=== PATIENT | female | born 1935 | race African-American/Black ===

== ENCOUNTER 2020-02-26 21:48 | Inpatient (IN) | payer OTHER ==
[2020-02-26 22:51] LABS: BASO % 0.1 % (0-2.0); EOS % 0.4 % (0-4.5); LYMPH % 14.3 % (8-40); MCHC 29.2 g/dl (32.0-36.0); MEAN PLT VOLUME 8.1 fl (7.5-11.1); MONO % 6.3 % (3.8-10.2); NEUT % 78.9 % (42.8-82.8); PLATELET COUNT 404 K/MM3 (134-434); RBC 3.03 M/mm3 (3.60-5.2); RDW 18.9 % (11.6-15.6); WHITE BLOOD COUNT 7.4 K/mm3 (4.0-10.0)
[2020-02-26 22:53] LABS: MCH 17.8 pg (25.7-33.7)
[2020-02-26 22:55] LABS: HEMATOCRIT 18.5 % (32.4-45.2); HEMOGLOBIN 5.4 GM/dL (10.7-15.3)
[2020-02-26 23:08] LABS: INR 1.14 (0.83-1.09); PROTHROMBIN TIME (PATIENT) 13.5 SEC (9.7-13.0)
[2020-02-26 23:11] LABS: ACTIVATED PTT 27.5 SECONDS (25.2-36.5)
--- NOTE | 2020-02-26 23:22 | PDOC ---
History of Present Illness - General Chief Complaint: Syncope/Near Syncope Stated Complaint: SYNCOPE Time Seen by Provider: 02/26/20 21:53 History Source: Patient Exam Limitations: No Limitations - History of Present Illness Initial Comments: 02/26/20 23:20 Lucy Abdullahi is an 85F with PMH CVA May 2019, AFIB on Eliquis, HTN presenting with a syncopal episode. Patient here with daughter at bedside. Today is a patient's birthday, family brought her to a restaurant for dinner, after patient was standing outside in the heat waiting for [employer] to bring car. Daughter reports patient suddenly collapsed, caught by family and sat in chair, but was unresponsive to stimuli and immobile for a few minutes, thought she was until some cool towels placed on patient and she awoke, able to stand and talk again after but EMS called. No tongue-biting, loss of continence, or tonic-clonic movements. Patient ate fish and chips with soda, no alcohol. No sick contacts with family. No prior episodes like this. Has not left house in months due to covid-19, special occasion today. Normally able to stand and walk but does not so for a long time, gets tired easily. Prior CVA, daughter reports residual confusion/aphasia as well as mild R-sided weakness but otherwise functional, has been asymptomatic until today. Hard of hearing. Known history of AFIB on BB and Eliquis, has been taking medications regularly. Appetite good, no weight loss, no rectal bleeding. Patient feels fine right now. Has no recollection of the event, denies prodromal sx. Denies F/C, N/V/C/D, chest pain, SOB, abd pain, urinary sx, dizziness. NKDA Meds include BB and Eliquis No PSH Denies alcohol/drugs/tobacco Past History - Medical History Allergies/Adverse Reactions: Allergies Allergy/AdvReac Type Severity Reaction Status Date / Time No Known Allergies Allergy Verified 02/27/20 06:17 Home Medications: Ambulatory Orders Amiodarone HCl 100 mg PO DAILY 02/27/20 Amlodipine Besylate [Norvasc -] 5 mg PO DAILY 02/27/20 Apixaban [Eliquis -] 2.5 mg PO BID 02/27/20 Atorvastatin Ca [Lipitor] 40 mg PO HS 02/27/20 Hydrochlorothiazide [Hctz -] 25 mg PO DAILY 02/27/20 - Psycho-Social/Smoking History Smoking History: Never smoked Have you smoked in the past 12 months: No Information on smoking cessation initiated: No - Substance Abuse Hx (Audit-C & DAST Scrn) How often the patient has a drink containing alcohol: Never Score: In Men: 4 or > Positive; In Women: 3 or > Positive: 0 Screen Result (Pos requires Nsg. Audit-10AR): Negative In the last yr the pt used illegal drug/Rx for NonMed reason: No Score: Yes response is considered Positive: 0 Screen Result (Positive result requires Nsg. DAST-10): Negative Review of Systems - Review of Systems Able to Perform ROS?: Yes Constitutional: Yes: Weakness. No: Fever, Loss of Appetite HEENTM: No: Symptoms Reported Respiratory: No: Symptoms reported Cardiac (ROS): Yes: Syncope ABD/GI: No: Constipated, Diarrhea, Nausea, Poor Appetite, Poor Fluid Intake, Rectal Bleeding, Vomiting : No: Symptoms Reported Musculoskeletal: No: Symptoms Reported Integumentary: No: Symptoms Reported Neurological: Yes: Pre-Existing Deficit (R-sided weakness arm and leg) Endocrine: No: Symptoms Reported Hematologic/Lymphatic: No: Symptoms Reported All Other Systems: Reviewed and Negative *Physical Exam - Vital Signs Last Vital Signs Temp Pulse Resp BP Pulse Ox 98.1 F 61 20 146/58 L 100 02/26/20 21:49 02/26/20 21:49 02/26/20 21:49 02/26/20 21:49 02/26/20 21:49 - Physical Exam General Appearance: Yes: Nourished, Appropriately Dressed, Thin, Other (hard of hearing, mildly confused, able to communicate well with slower speech). No: Apparent Distress HEENT: positive: EOMI, SANTOS, Normal ENT Inspection, Normal Voice, Symmetrical, Pharynx Normal, Hearing Grossly Normal. negative: Scleral Icterus (R), Scleral Icterus (L), Pharyngeal Erythema, Tonsillar Exudate, Tonsillar Erythema Neck: positive: Trachea midline, Normal Thyroid, Supple. negative: Tender, Rigid, Decreased range of motion, Lymphadenopathy (R), Lymphadenopathy (L), Tender lateral, Tender midline Respiratory/Chest: positive: Lungs Clear, Normal Breath Sounds. negative: Chest Tender, Respiratory Distress, Accessory Muscle Use, Labored Respiration, Financial Auditor ckles, Rales, Rhonchi, Stridor, Wheezing Cardiovascular: positive: Regular Rhythm, Regular Rate. negative: Murmur Gastrointestinal/Abdominal: positive: Normal Bowel Sounds, Flat, Soft. negative: Tender, Organomegaly, Pulsatile Mass, Guarding, Rebound, Tenderness Musculoskeletal: positive: Normal Inspection. negative: CVA Tenderness, CVA Tenderness (R), CVA Tenderness (L), Vertebral Tenderness Extremity: positive: Normal Capillary Refill, Normal Inspection, Normal Range of Motion, Pelvis Stable. negative: Tender, Pedal Edema, Swelling, Calf Tenderness Integumentary: positive: Normal Color, Dry, Warm Neurologic: positive: tobacco shaker II-XII NML intact, Alert, Normal Mood/Affect, Normal Response, Responsive, Finger to Nose (normal), Other (follows commands well, hard of hearing). 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, otherwise normal strength to L side, moving spontanesouly), Facial Droop, Numbness, Sensory Deficit ED Treatment Course - LABORATORY CBC & Chemistry Diagram: 02/27/20 20:45 02/27/20 11:20 - ADDITIONAL ORDERS Additional order review: Laboratory Results 02/26/20 22:35 PT with INR 13.50 H INR 1.14 H PTT (Actin FS) 27.5 02/26/20 22:35 RBC 3.03 L MCV 61.0 L MCHC 29.2 L RDW 18.9 H MPV 8.1 Neutrophils % 78.9 Lymphocytes % 14.3 Monocytes % 6.3 Eosinophils % 0.4 Basophils % 0.1 Medical Decision Making - Medical Decision Making 02/27/20 02:04 Patient has history of AFIB and CVA presenting with syncope. Consider ACS vs. arrhythmia vs. dehydration vs. anemia. Unlikely neuro etiology, per daughter at baseline mental status and motor deficit, no new findings from prior as evidence of new CVA or ICH, history inconsistent with seizure, no head injury with syncope but on Eliquis. VSS. Evaluating broadly with CBC/CMP/CP/ECG/CXR/Coags as well as CT head for eval ICH. Orthostatics attempted but patient is too weak to safely stand. ECG NSR with HR 60, QTc 544, no RADHA/D or TWI. CXR unremarkable Labs notable for: - Hgb 5.3 - MCV 60 consistent with microcytic anemia - CMP WNL CT head: no acute pathology Patient has critically low Hgb, ordering 2U pRBCs. Family consent obtained. Performed rectal exam and FOBT, no evidence of bleeding or hemorrhoids. FOBT negative. Iron studies added, likely iron deficiency, no signs of bleeding on preliminary exam. Patient requires admission to telemetry for syncope and anemia requiring transfusion. Attending discussed case with admitting team, good for admit to tele under Dr. Burgess. Discharge - Discharge Information Problems reviewed: Yes Clinical Impression/Diagnosis: Syncope and collapse Anemia Qualifiers: Anemia type: unspecified type Qualified Code(s): D64.9 - Anemia, unspecified Condition: Guarded - Admission Yes - Follow up/Referral - Patient Discharge Instructions - Post Discharge Activity
[2020-02-26 23:42] LABS: ALK PHOS 98 U/L (45-117); ANION GAP 5 MMOL/L (8-16); ANISOCYTOSIS 1+; BILIRUBIN,TOTAL 0.3 mg/dL (0.2-1); BLOOD UREA NITROGEN 13.1 mg/dL (7-18); CALCIUM 9.2 mg/dL (8.5-10.1); CHLORIDE 102 mmol/L (98-107); CO2 31 mmol/L (21-32); GLUCOSE,RANDOM 160 mg/dL (74-106); MAGNESIUM 2.3 mg/dL (1.8-2.4); SGOT/AST 25 U/L (15-37); SGPT/ALT 22 U/L (13-61); SODIUM 138 mmol/L (136-145); TOT PROT 7.4 g/dl (6.4-8.2)
[2020-02-26 23:43] LABS: OVALOCYTE 1+; PLATELET ESTIMATE ADEQUATE
--- NOTE | 2020-02-27 00:02 | PDOC ---
Documentation entered by Anne Marie Hutchison SCRIBE, acting as scribe for Codie Truong DO. Codie Truong DO: This documentation has been prepared by the Foster wilkerson Xhesika, SCRIBE, under my direction and personally reviewed by me in its entirety. I confirm that the documentation accurately reflects all work, treatment, procedures, and medical decision making performed by me. Attending Attestation - Resident Resident Name: Juan Sandra - ED Attending Attestation I have performed the following: I have examined & evaluated the patient, The case was reviewed & discussed with the resident, I agree w/resident's findings & plan, Exceptions are as noted - HPI HPI: 02/26/20 21:55 The patient is a 85 year old male with a significant PMH of CVA with residual deficits, Afib on eliquis who presents to the emergency department s/p syncope. Pt was at a restaurant because its her birthday, ate dinner, was standing outside waiting for compression molding machine setter to bring the car back when she fell. Pt was caught by the daughter and was sat on a chair. Family denies patient hitting her head. Per family, patient was unresponsive for 3minutes. Pt does not recall the incident. Pt denies drinking alcohol tonight, only had fish, iranian-fries, soda and water. The patient denies chest pain, shortness of breath, headache and dizziness. Denies fever, chills, cough, nausea, vomiting, diarrhea and constipation. Allergies: NKDA PCP: Eran Seaman - Physicial Exam PE: 02/26/20 22:53 GENERAL: Awake, alert, and fully oriented. slow to answer questions HEAD: No signs of trauma EYES: PERRLA, EOMI, sclera anicteric, conjunctiva clear ENT: Auricles normal inspection, hearing grossly normal, nares patent, oropharynx clear without exudates. Moist mucosa NECK: Normal ROM, supple, no lymphadenopathy, JVD, or masses LUNGS: Breath sounds equal, clear to auscultation bilaterally. No wheezes, and no crackles HEART: Regular rate and rhythm, normal S1 and S2, no murmurs, rubs or gallops ABDOMEN: Soft, nontender, normoactive bowel sounds. No guarding, no rebound. No masses EXTREMITIES: Normal range of motion, no edema. No clubbing or cyanosis. No cords, erythema, or tenderness SKIN: Warm, Dry, normal turgor, no rashes lesions noted. 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 -denies abd pain -will send labs, ekg, cxr, head ct -[facility] -will monitor and reassess 02/27/20 00:01 hgb 5 discussed with the patient and her son, agrees to blood transfusion 2 units ordered stool for heme sent will need admission 02/27/20 00:04 cxr clear 02/27/20 01:[address] neg 02/27/20 01:08 microblog sent for admission for symptomatic anemia, syncope 02/27/20 01:34 case discussed with osvaldo, who accepts pt to service Heart Score/ECG Review - ECG Intrepretation Comment:: 02/26/20 23:55 sinus at 60, nl axis, nl interval, t wave inversions v3-4, q waves anteriorly which are age indeterminate, abnl ekg Discharge - Discharge Information Problems reviewed: Yes Clinical Impression/Diagnosis: Syncope and collapse Anemia Qualifiers: Anemia type: unspecified type Qualified Code(s): D64.9 - Anemia, unspecified Condition: Guarded - Admission Yes - Follow up/Referral Referrals: Eran Seaman MD [Primary Care Provider] - - Patient Discharge Instructions - Post Discharge Activity
--- NOTE | 2020-02-27 01:42 | PN ---
Teaching Attending Note Name of Resident: Dahiana De La Torre ATTENDING PHYSICIAN STATEMENT I saw and evaluated the patient. I reviewed the resident's note and discussed the case with the resident. I agree with the resident's findings and plan as documented. SUBJECTIVE: Patient is a 85 year old woman with a PMH of CVA with residual deficits (2019) and Afib (on eliquis) who presents to the ER after a syncopal episode. Patient was at a restaurant because its her birthday, ate dinner, was standing outside waiting for [employer] to bring the car back when she fell. She was caught by the daughter and was sat on a chair. Family denies patient hitting her head. Per family, patient was unresponsive for about 3 minutes. Patient does not recall the incident and denies drinking alcohol tonight - only had fish, rwandan-fries, soda and water. Patient denies chest pain, shortness of breath, abdominal pain, headache, palpitations, dizziness, fever, chills, nausea, vomiting, diarrhea, constipation, dysuria, frequency, urgency, melena, hematochezia or hematuria. Denies alcohol, tobacco or illicit drug use. No sick contacts or recent travels. Family history is unremarkable. OBJECTIVE: Alert and not orthostatic Vital Signs Period Temp Pulse Resp BP Sys/Vega Pulse Ox Last 24 Hr 98.1 F-99.1 F 59-61 18-20 130-146/55-58 96-100 HEENT: No Jaundice, eye redness or discharge; +conjuctival pallor, PERRLA, EOMI. Normocephalic, atraumatic. External ears are normal and hearing is grossly intact. No nasal discharge. Neck: Supple, nontender. No palpable adenopathy or thyromegaly. No JVD Chest: Good effort. Clear to auscultation and percussion. Heart: Regular. No S3, rub or murmur Abdomen: Not distended, soft, nontender and no HSM. No rebound or guarding. Normal bowel sounds. Ext: Peripheral pulses intact. No leg edema. Skin: Warm and dry. No petechiae, rash or ecchymosis. Neuro: Alert. Oriented to person and place; CN 2-12 grossly intact. Sensation grossly intact in all four extremities and DTR are symmetric. Psych: Appropriate mood and affect. Good insight. Abnormal Lab Results 07/29/20 07/29/20 07/29/20 22:35 22:35 22:35 RBC 3.03 L Hgb 5.4 L* Hct 18.5 L MCV 61.0 L MCH 17.8 L MCHC 29.2 L RDW 18.9 H PT with INR 13.50 H INR 1.14 H Anion Gap 5 L Random Glucose 160 H Albumin 3.0 L Crossmatch 02/26/20 23:38 RBC Hgb Hct MCV MCH MCHC RDW PT with INR INR Anion Gap Random Glucose Albumin Crossmatch See Detail Current Medications Generic Name Dose Route Start Last Admin Trade Name Freq PRN Reason Stop Dose Admin Ferrous Sulfate 325 mg 02/27/20 10:00 Feosol - PO BID VICTORINO ASSESSMENT AND PLAN: 1. Syncope/Severe microcytic anemia - Syncope likely due to anemia. No acute abnormality on head CT. CXR shows cardiomegaly. Will do basic anemia work up including serial stool guaiacs, reticulocyte count and iron studies. Will admit to telemetry, hold Eliquis, do neurochecks, implement fall/seizure/aspiration precautions, get ECHO, urinalysis, carotid doppler, CT abdomen/pelvis and repeat head CT in 24 hours. Patient being transfused PRBC and would subsequently need IV iron. During the day would strive to get her records from her PCP. Consult GI. Viral testing for COVID-19 ordered and patient placed on airborne, droplet and contact isolation. EKG shows NSR at 60/minute and QTc 544, T wave inversion/flattening in I, aVL, V2-V6 with no significant ST changes. Initial troponin is negative. No old EKG available for comparison. Will repeat EKG and troponin to rule out ACS. Will avoid drugs that may prolong QTc. Will continue comprehensive care for all of patients comorbid conditions. 2. Hypoalbuminemia - Possibly due to combined effects of malnutrition and inflammation associated with comorbid conditions. Will ensure adequate dietary protein intake and also consult state trooper. Urinalysis pending. 3. DVT prophylaxis - SCD 4. Advance directives - Full code
[2020-02-27 02:18] LABS: IRON SERUM 9 ug/dL (50-175); TOTAL IRON BINDING CAPACITY 466 ug/dL (250-450)
--- NOTE | 2020-02-27 05:55 | HP ---
CHIEF COMPLAINT: Syncope HISTORY OF PRESENT ILLNESS: Patient is a 85 year old woman with a PMH of CVA with residual aphasia and Afib (on eliquis) now presenting to the ER after a syncopal episode. Today is her birthday and she went out for dinner which her family. While waiting for her car, she fell backward but was held by the daughter and placed on a chair. She was told she had a brief LOC and water was poured on her face but could not tell the duration of LOC. She denies hitting her head. Per family, patient was unresponsive for about 3 minutes. Patient does not recall the incident and denies drinking alcohol tonight - only had fish, urdu-fries, soda and water. Patient denies chest pain, shortness of breath, abdominal pain, headache, palpitations, dizziness, fever, chills, nausea, vomiting, diarrhea, constipation, dysuria, frequency, urgency, melena, hematochezia or hematuria. Denies alcohol, tobacco or illicit drug use. No sick contacts or recent travels. Family history is unremarkable and was limited by patient's slowed speech. ER course was notable for: (1)ua done (2)ct head negative for acute pathology just old infarct of mca distribution (3)cbc- 5hgb Social History: Smoking:denies Alcohol:denies Drugs: denies Family Hx: Limited, patient was limited by her speech OBGY: Post menopausal PSHx: None REVIEW OF SYSTEMS negative except as in hpi PHYSICAL EXAMINATION Vital Signs - 24 hr 02/26/20 02/27/20 21:49 01:04 Temperature 98.1 F 99.1 F Pulse Rate 61 Pulse Rate [ 59 L Left Radial] Respiratory 20 18 Rate Blood Pressure 146/58 L Blood Pressure 130/55 L [Left Arm] O2 Sat by Pulse 100 96 Oximetry (%) GENERAL: Awake, alert, and oriented X2 place and month not year, in no acute distress. HEAD: Normal with no signs of trauma. NECK: Normal range of motion, supple without lymphadenopathy, JVD, or masses. LUNGS: Breath sounds equal, clear to auscultation bilaterally. No wheezes, and no crackles. No accessory muscle use. HEART: Regular rate and rhythm, normal S1 and S2, s45 present ABDOMEN: Soft, nontender, not distended. MUSCULOSKELETAL: Normal range of motion at all joints. No bony deformities or tenderness. No CVA tenderness. LOWER EXTREMITIES: 2+ pulses, warm, well-perfused. No calf tenderness. No peripheral edema. NEUROLOGICAL: Cranial nerves II-XII intact. 4/5 lower extremities slowed speech. PSYCHIATRIC: Cooperative. Good eye contact. Appropriate mood and affect. Laboratory Results - last 24 hr 02/26/20 02/26/20 02/26/20 22:35 22:35 22:35 WBC 7.4 RBC 3.03 L Hgb 5.4 L* Hct 18.5 L MCV 61.0 L MCH 17.8 L MCHC 29.2 L RDW 18.9 H Plt Count 404 MPV 8.1 Absolute Neuts (auto) 5.8 Neutrophils % 78.9 Lymphocytes % 14.3 Monocytes % 6.3 Eosinophils % 0.4 Basophils % 0.1 Nucleated RBC % 0 Hypochromia 3+ Platelet Estimate Adequate Platelet Comment Giant platelets Polychromasia 1+ Poikilocytosis 1+ Anisocytosis 1+ Microcytosis 2+ Ovalocytes 1+ Ruslan Cells 1+ Fragmented RBCs Few PT with INR 13.50 H INR 1.14 H PTT (Actin FS) 27.5 Sodium 138 Potassium 4.0 Chloride 102 Carbon Dioxide 31 Anion Gap 5 L BUN 13.1 Creatinine 1.0 Est GFR (CKD-EPI)AfAm 59.49 Est GFR (CKD-EPI)NonAf 51.33 Random Glucose 160 H Calcium 9.2 Magnesium 2.3 Iron 9 L TIBC 466 H Iron Saturation 1 L Unsaturated IBC 457 H Total Bilirubin 0.3 AST 25 ALT 22 Alkaline Phosphatase 98 Creatine Kinase 102 Troponin I < 0.02 Total Protein 7.4 Albumin 3.0 L Vitamin B12 604 Serum Folate 9 Stool Occult Blood Blood Type Antibody Screen Crossmatch 02/26/20 02/26/20 02/27/20 23:38 23:38 00:01 WBC RBC Hgb Hct MCV MCH MCHC RDW Plt Count MPV Absolute Neuts (auto) Neutrophils % Lymphocytes % Monocytes % Eosinophils % Basophils % Nucleated RBC % Hypochromia Platelet Estimate Platelet Comment Polychromasia Poikilocytosis Anisocytosis Microcytosis Ovalocytes Brandeis Cells Fragmented RBCs PT with INR INR PTT (Actin FS) Sodium Potassium Chloride Carbon Dioxide Anion Gap BUN Creatinine Est GFR (CKD-EPI)AfAm Est GFR (CKD-EPI)NonAf Random Glucose Calcium Magnesium Iron TIBC Iron Saturation Unsaturated IBC Total Bilirubin AST ALT Alkaline Phosphatase Creatine Kinase Troponin I Total Protein Albumin Vitamin B12 Serum Folate Stool Occult Blood Negative Blood Type A POSITIVE A POSITIVE Antibody Screen Negative Negative Crossmatch See Detail ASSESSMENT/PLAN: Patient is a 85 year old woman with a PMH of CVA with residual aphasia and Afib (on eliquis) now presenting to the ER after a syncopal episode. 1.Syncope likely 2/2 Severe microcytic anemia -Hb 5.4, MCV 18.5, rdw 18.9 - iron deficiency anemia - s/p 2 prbc transfusions - will do basic anemia work up: stool guaiacs, reticulocyte count and iron studies - as per day team if you want to give venofer - rpt cbc in am and assess post prbc transfusion - obtain more hx from daughter in am - echo, carotid - implement fall/seizure/aspiration precautions, urinalysis, - get CT abdomen/pelvis to assess for source of blood loss - Consult GI. Viral testing for COVID-19 ordered and patient placed on airborne, droplet and contact isolation. 2.Hypertensve heart disease. -CXR shows cardiomegaly. -hx of HTN -hx of CVD -S4 Heart sound on auscultation - Will restart suitable outpatient antihypertensive drugs when clinically appropriate. 3. Qtc prolongation - unknown cause possibly due to medication side effect and could be cause of syncope, will have day team med rec patient stat - EKG shows NSR at 60/minute and QTc 544, T wave inversion/flattening in I, aVL, V2-V6 with no significant ST changes. Initial troponin is negative. 4. DM For now, we will hold the home diabetes drugs and implement sliding scale insulin regimen. - BGM ACHS - A1C DVT prophylaxis - SCD Continue to monitor all results and treat as clinically required Advance directives - Full code Visit type - Medication Review Med list reviewed for High Risk Meds patients 65 and older: Yes - Emergency Visit Emergency Visit: Yes ED Registration Date: 02/27/20 Care time: The patient presented to the Emergency Department on the above date and was hospitalized for further evaluation of their emergent condition. - New Patient This patient is new to me today: Yes Date on this admission: 02/27/20 - Critical Care Critical Care patient: No ATTENDING PHYSICIAN STATEMENT I saw and evaluated the patient. I reviewed the resident's note and discussed the case with the resident. I agree with the resident's findings and plan as documented. SUBJECTIVE: OBJECTIVE: ASSESSMENT AND PLAN:
[2020-02-27] MEDS ORDERED: FERROUS SO4 325 MG TABLET (FP) PO SCH (08:00)
[2020-02-27] MEDS ORDERED: FERROUS SO4 325 MG TABLET (FP) ONE (08:33)
[2020-02-27] MEDS ORDERED: amLODIPine BESYLATE 5 MG TABLET (FP) PO SCH (10:00)
[2020-02-27] MEDS ORDERED: HYDROCHLOROTHIAZIDE 25 MG TABLET (FP) PO SCH (10:00)
--- NOTE | 2020-02-27 11:29 | EKG ---
Test Reason : Blood Pressure : / mmHG Vent. Rate : 060 BPM Atrial Rate : 060 BPM P-R Int : 176 ms QRS Dur : 090 ms QT Int : 544 ms P-R-T Axes : 090 -10 126 degrees QTc Int : 544 ms NORMAL SINUS RHYTHM POSSIBLE ANTERIOR INFARCT , AGE UNDETERMINED ABNORMAL ECG NO PREVIOUS ECGS AVAILABLE Confirmed by KARLA MARQUES MD ([id number]) on 02/27/2020 11:28:37 AM Referred By: Confirmed By:KARLA MARQUES MD
[2020-02-27] MEDS ORDERED: HYDROCHLOROTHIAZIDE 25 MG TABLET (FP) ONE (11:34)
[2020-02-27 11:48] LABS: BASO % 0.5 % (0-2.0); EOS % 0.7 % (0-4.5); HEMATOCRIT 21.1 % (32.4-45.2); LYMPH % 19.5 % (8-40); MCHC 30.6 g/dl (32.0-36.0); MEAN CELL VOLUME 64.2 fl (80-96); MEAN PLT VOLUME 8.5 fl (7.5-11.1); MONO % 7.4 % (3.8-10.2); NEUT % 71.9 % (42.8-82.8); PLATELET COUNT 376 K/MM3 (134-434); RBC 3.28 M/mm3 (3.60-5.2); RDW 22.5 % (11.6-15.6); WHITE BLOOD COUNT 6.4 K/mm3 (4.0-10.0)
[2020-02-27 11:49] LABS: MCH 19.7 pg (25.7-33.7)
[2020-02-27 11:51] LABS: HEMOGLOBIN 6.5 GM/dL (10.7-15.3)
[2020-02-27 12:23] LABS: ALBUMIN 2.6 g/dl (3.4-5.0); BILIRUBIN,TOTAL 0.4 mg/dL (0.2-1); BLOOD UREA NITROGEN 12.9 mg/dL (7-18); CREATININE 0.8 mg/dL (0.55-1.3); POTASSIUM 3.9 mmol/L (3.5-5.1); TOT PROT 6.6 g/dl (6.4-8.2)
--- NOTE | 2020-02-27 12:26 | ECHO ---
Name: JOSE ALEXANDER Exam:Adult Echocardiogram Study Date: 02/27/2020 09:28 AM Age: 85 yrs Reason For Study: LV Function Height: 66 in Weight: 150 lb BSA: 1.8 m2 MMode/2D Measurements & Calculations IVSd: 0.99 cm Ao root diam: 3.1 cm LVIDd: 4.9 cm LA dimension: 4.0 cm LVIDs: 3.2 cm ACS: 1.9 cm LVPWd: 0.94 cm LVPWs: 0.90 cm EDV(Teich): 110.3 ml ESV(Teich): 39.5 ml LVOT diam: 2.0 cm LVLd ap4: 6.8 cm EDV(MOD-sp4): 79.0 ml LVLs ap4: 4.9 cm ESV(MOD-sp4): 22.0 ml SV(MOD-sp4): 57.0 ml TAPSE: 1.8 cm RV S Juan Jose: 16.0 cm/sec Doppler Measurements & Calculations MVA(VTI): 1.7 cm2 MV E max juan jose: 62.2 cm/sec MV V2 max: 100.6 cm/sec MV A max juan jose: 88.8 cm/sec MV max P.1 mmHg MV E/A: 0.70 MV V2 mean: 52.7 cm/sec MV dec time: 0.36 sec MV mean P.3 mmHg MV V2 VTI: 35.0 cm Ao V2 max: 199.2 cm/sec AI max juan jose: 347.3 cm/sec Ao max P.0 mmHg AI max P.3 mmHg Ao V2 mean: 137.7 cm/sec Ao mean P.8 mmHg AI dec slope: 111.0 cm/sec2 Ao V2 VTI: 49.8 cm ANGELIA(I,D): 1.2 cm2 AI P1/2t: 916.8 msec ANGELIA(V,D): 1.4 cm2 LV V1 max P.1 mmHg MR max juan jose: 365.5 cm/sec LV V1 mean P.8 mmHg MR max P.8 mmHg LV V1 max: 88.2 cm/sec LV V1 mean: 62.8 cm/sec LV V1 VTI: 19.0 cm SV(LVOT): 58.1 ml TR max juan jose: 247.0 cm/sec TR max P.4 mmHg PA V2 max: 158.8 cm/sec Med Peak E' Juan Jose: 4.9 cm/sec PA max P.1 mmHg Med E/e': 12.6 Lat Peak E' Juan Jose: 8.8 cm/sec Lat E/e': 7.0 Procedure A complete two-dimensional transthoracic echocardiogram was performed (2D, M-mode, Doppler and color flow Doppler). Left Ventricle The left ventricular size, thickness and function are normal. Ejection Fraction = 60-65%. The left ve ntricular wall motion is normal. Right Ventricle The right ventricle is normal in size and function. Atria Normal left and right atrial size and function. Mitral Valve There is no mitral regurgitation noted. Tricuspid Valve There is trace tricuspid regurgitation. Right ventricular systolic pressure is normal. Aortic Valve Mild valvular aortic stenosis. Mild aortic regurgitation. Pulmonic Valve Trace pulmonic valvular regurgitation. Great Vessels The aortic root is normal size. Pericardium/Pleura There is no pericardial effusion. Interpretation Summary The left ventricular size, thickness and function are normal The right ventricle is normal in size and function. There is trace tricuspid regurgitation. Mild aortic regurgitation. Mild valvular aortic stenosis. Trace pulmonic valvular regurgitation. MD Mert Persaud 02/27/2020 12:26 PM
--- NOTE | 2020-02-27 12:43 | PN ---
Physical Exam: SUBJECTIVE: No overnight events. Patient seen and examined. Pt has no complaints OBJECTIVE: Vital Signs Period Temp Pulse Resp BP Sys/Vega Pulse Ox Last 24 Hr 98.1 F-99.1 F 50-111 14-20 112-146/49-66 96-100 GENERAL: The patient is awake, alert, and fully oriented, in no acute distress. aphasic HEENT: NT/NC; No ptosis, MMM LUNGS: Breath sounds equal, clear to auscultation bilaterally, no wheezes, no crackles, no accessory muscle use. HEART: Regular rate and rhythm, S1, S2. Systolic mumur at L lower sternal border and mitral area ABDOMEN: Soft, nontender, nondistended, normoactive bowel sounds, no external masses, no skin tags, firm stool, no rectal blood appreciated, normal rectal tone EXTREMITIES: 2+ pulses, warm, well-perfused, no edema. Clavicle not TTP. b/l Shoulder full ROM. NEUROLOGICAL: Cranial nerves II through XII grossly intact. Normal speech, gait not observed. Sensation intact b/l LE & UE. Strength: RUE 4/5 strength, LUE 5/5, LLE 5/5, RLE 4/5 flexion/extension at hip, 3/5 flexion/extension at knee PSYCH: Normal mood, normal affect. SKIN: Warm, dry, normal turgor, no rashes or lesions noted Laboratory Results - last 24 hr 02/26/20 02/26/20 02/26/20 22:35 22:35 22:35 WBC 7.4 RBC 3.03 L Hgb 5.4 L* Hct 18.5 L MCV 61.0 L MCH 17.8 L MCHC 29.2 L RDW 18.9 H Plt Count 404 MPV 8.1 Absolute Neuts (auto) 5.8 Neutrophils % 78.9 Lymphocytes % 14.3 Monocytes % 6.3 Eosinophils % 0.4 Basophils % 0.1 Nucleated RBC % 0 Hypochromia 3+ Platelet Estimate Adequate Platelet Comment Giant platelets Polychromasia 1+ Poikilocytosis 1+ Anisocytosis 1+ Microcytosis 2+ Ovalocytes 1+ [place] Cells 1+ Fragmented RBCs Few Retic Count PT with INR 13.50 H INR 1.14 H PTT (Actin FS) 27.5 Sodium 138 Potassium 4.0 Chloride 102 Carbon Dioxide 31 Anion Gap 5 L BUN 13.1 Creatinine 1.0 Est GFR (CKD-EPI)AfAm 59.49 Est GFR (CKD-EPI)NonAf 51.33 Random Glucose 160 H Calcium 9.2 Magnesium 2.3 Iron 9 L TIBC 466 H Iron Saturation 1 L Unsaturated IBC 457 H Total Bilirubin 0.3 AST 25 ALT 22 Alkaline Phosphatase 98 Creatine Kinase 102 Troponin I < 0.02 Total Protein 7.4 Albumin 3.0 L Vitamin B12 604 Serum Folate 9 Stool Occult Blood Blood Type Antibody Screen Crossmatch 02/26/20 02/26/20 02/27/20 23:38 23:38 00:01 WBC RBC Hgb Hct MCV MCH MCHC RDW Plt Count MPV Absolute Neuts (auto) Neutrophils % Lymphocytes % Monocytes % Eosinophils % Basophils % Nucleated RBC % Hypochromia Platelet Estimate Platelet Comment Polychromasia Poikilocytosis Anisocytosis Microcytosis Ovalocytes [place] Cells Fragmented RBCs Retic Count PT with INR INR PTT (Actin FS) Sodium Potassium Chloride Carbon Dioxide Anion Gap BUN Creatinine Est GFR (CKD-EPI)AfAm Est GFR (CKD-EPI)NonAf Random Glucose Calcium Magnesium Iron TIBC Iron Saturation Unsaturated IBC Total Bilirubin AST ALT Alkaline Phosphatase Creatine Kinase Troponin I Total Protein Albumin Vitamin B12 Serum Folate Stool Occult Blood Negative Blood Type A POSITIVE A POSITIVE Antibody Screen Negative Negative Crossmatch See Detail See Detail 02/27/20 02/27/20 11:20 11:20 WBC 6.4 RBC 3.28 L Hgb 6.5 L* Hct 21.1 L MCV 64.2 L MCH 19.7 L D MCHC 30.6 L RDW 22.5 H Plt Count 376 MPV 8.5 Absolute Neuts (auto) 4.6 Neutrophils % 71.9 Lymphocytes % 19.5 D Monocytes % 7.4 Eosinophils % 0.7 Basophils % 0.5 D Nucleated RBC % 0 Hypochromia Platelet Estimate Platelet Comment Polychromasia Poikilocytosis Anisocytosis Microcytosis Ovalocytes [place] Cells Fragmented RBCs Retic Count 1.70 H PT with INR INR PTT (Actin FS) Sodium 139 Potassium 3.9 Chloride 104 Carbon Dioxide 30 Anion Gap 6 L BUN 12.9 Creatinine 0.8 Est GFR (CKD-EPI)AfAm 77.92 Est GFR (CKD-EPI)NonAf 67.23 Random Glucose 92 Calcium 9.0 Magnesium Iron TIBC Iron Saturation Unsaturated IBC Total Bilirubin 0.4 AST 21 ALT 19 Alkaline Phosphatase 90 Creatine Kinase Troponin I Total Protein 6.6 Albumin 2.6 L Vitamin B12 Serum Folate Stool Occult Blood Blood Type Antibody Screen Crossmatch Active Medications Generic Name Dose Route Start Last Admin Trade Name Indira PRN Reason Stop Dose Admin Atorvastatin Calcium 40 mg 02/27/20 22:00 Lipitor - PO HS VICTORINO Ferrous Sulfate 325 mg 02/27/20 08:00 02/27/20 08:33 Feosol - PO 325 mg BIDWM VICTORINO Administration Hydrochlorothiazide 25 mg 02/27/20 10:00 02/27/20 11:34 Hctz - PO 25 mg DAILY VICTORINO Administration CTH: encephalomalacia in L frontal lobe, extending level of slyvian fissure up to centrum semiovale. B/l maxillary antra retention cysts vs polyps, largest measuring 12 mm on R CTAP: bibasilar consolidation/atelectasis. Fecal retention with rectal impaction. Thickening of rectal wall ASSESSMENT/PLAN: 85 YO F PMH HTN, CVA with residual aphasia and Afib (on eliquis) presented s/p a syncopal episode, found to have microcytic anemia. #Syncope 2/2 Microcytic anemia -CT head/CTAP showed no pathology. -on admission, Hgb/Hct 5/18.5. s/p 2 units. -EKG: QTC. Takes amiodarone at home. no events overight on telemonitoring -ECHO: LV/RV normal. Trace tricuspid/pulmonic regurg. Mild aortic regurg. Mild aortic stenosis -Carotid duplex: plaques; but without evidence of hemodynamically significant stenosis -Cardio c/s appreciated. manual QTC was found to be WNL. syncope likely 2/2 anemia. -c/w telemonitoring. --check AM orthostatic vitals -GI c/s appreciated. Protonix 40 mg daily #Iron deficiency anemia -on admission, Hgb/Hct 5/18.5. s/p 1 units prbc. Repeat CBC showed Hgb/hct 6.5/21.1 . One more prbc unit ordered. REpeat Hgb/Hct: 7.9/25.4 -stool occult blood negative. No blood on rectal exam. -LOW: MCV, iron, iron saturation/// HIGH: TIBC 466; Unsaturated IBC: 457, RDW// NORMAL: Vit B12 (604), Folate (9) -hold home eliquis. -GI consult appreciated. Possible colonoscopy on Monday due to home Eliquis. Goals of care to be clarified w/ pt's son who is the HCP. Keep Hgb > 8 #R clavicle fracture on X-ray -no pain on palpation of clavicle. b/l shoulder normal ROM on physical exam. -pt endorsed a mechanical fall in September. She tripped over an object and injured her shoulder. She used ice and the pain eventually resolved. #Fecal Impaction -CTAP: Fecal retention with rectal impaction -[id number] mg PO BID -GI C/s appreciated. Miralax 17 gm PO TID, senna tab PO HS started -rectum was manually disimpacted #HTN -hold hydrochlorothiazide to preclude hypovelmia. c/w home dose norvasc #Afib -hold eliquis 2/2 anemia. Hold amiodarone. #H/o CVA with residual dysphasia (2018) -hold eliquis 2/2 anemia -c/w home atorvastatin 40 mg PO HS Continue Lipitor. Eliquis held. #DVT PPX SCDs #FEN no IVF monitor lytes Clear liquids #DISPO maintain tele Visit type - Emergency Visit Emergency Visit: Yes ED Registration Date: 02/27/20 Care time: The patient presented to the Emergency Department on the above date and was hospitalized for further evaluation of their emergent condition. - New Patient This patient is new to me today: Yes Date on this admission: 02/27/20 - Critical Care Critical Care patient: No - Medication Review Med list reviewed for High Risk Meds patients 65 and older: Yes ATTENDING PHYSICIAN STATEMENT I saw and evaluated the patient. I reviewed the resident's note and discussed the case with the resident. I agree with the resident's findings and plan as documented. SUBJECTIVE: OBJECTIVE: ASSESSMENT AND PLAN:
--- NOTE | 2020-02-27 13:17 | PN ---
Teaching Attending Note Name of Resident: Akhil Aldana ATTENDING PHYSICIAN STATEMENT I saw and evaluated the patient. I reviewed the resident's note and discussed the case with the resident. I agree with the resident's findings and plan as documented. SUBJECTIVE: Feels well, no complaints. No headache/visual disturbance/limb numbness or weakness. OBJECTIVE: Afebrile, Hemodynamically Stable. Last Vital Signs Temp Pulse Resp BP Pulse Ox 98.2 F 111 H 18 133/66 98 02/27/20 10:26 02/27/20 10:02/27/20 10:02/27/20 10:02/27/20 10:26 HEENT - Atraumatic, Normocephalic. Heart - S1, S2, SM Lungs - clear to auscultation Abdomen - soft, non-tender. Bowel Sounds normal. Extremities - No edema, no calf tenderness. Neuro - AAO x 1-2. Tone/Power normal all extremities. Laboratory Results - last 24 hr 02/26/20 02/26/20 02/26/20 22:35 22:35 22:35 WBC 7.4 RBC 3.03 L Hgb 5.4 L* Hct 18.5 L MCV 61.0 L MCH 17.8 L MCHC 29.2 L RDW 18.9 H Plt Count 404 MPV 8.1 Absolute Neuts (auto) 5.8 Neutrophils % 78.9 Lymphocytes % 14.3 Monocytes % 6.3 Eosinophils % 0.4 Basophils % 0.1 Nucleated RBC % 0 Hypochromia 3+ Platelet Estimate Adequate Platelet Comment Giant platelets Polychromasia 1+ Poikilocytosis 1+ Anisocytosis 1+ Microcytosis 2+ Ovalocytes 1+ [place] Cells 1+ Fragmented RBCs Few Retic Count PT with INR 13.50 H INR 1.14 H PTT (Actin FS) 27.5 Sodium 138 Potassium 4.0 Chloride 102 Carbon Dioxide 31 Anion Gap 5 L BUN 13.1 Creatinine 1.0 Est GFR (CKD-EPI)AfAm 59.49 Est GFR (CKD-EPI)NonAf 51.33 Random Glucose 160 H Calcium 9.2 Magnesium 2.3 Iron 9 L TIBC 466 H Iron Saturation 1 L Unsaturated IBC 457 H Total Bilirubin 0.3 AST 25 ALT 22 Alkaline Phosphatase 98 Creatine Kinase 102 Troponin I < 0.02 Total Protein 7.4 Albumin 3.0 L Vitamin B12 604 Serum Folate 9 Stool Occult Blood Blood Type Antibody Screen Crossmatch 02/26/20 02/26/20 02/27/20 23:38 23:38 00:01 WBC RBC Hgb Hct MCV MCH MCHC RDW Plt Count MPV Absolute Neuts (auto) Neutrophils % Lymphocytes % Monocytes % Eosinophils % Basophils % Nucleated RBC % Hypochromia Platelet Estimate Platelet Comment Polychromasia Poikilocytosis Anisocytosis Microcytosis Ovalocytes [place] Cells Fragmented RBCs Retic Count PT with INR INR PTT (Actin FS) Sodium Potassium Chloride Carbon Dioxide Anion Gap BUN Creatinine Est GFR (CKD-EPI)AfAm Est GFR (CKD-EPI)NonAf Random Glucose Calcium Magnesium Iron TIBC Iron Saturation Unsaturated IBC Total Bilirubin AST ALT Alkaline Phosphatase Creatine Kinase Troponin I Total Protein Albumin Vitamin B12 Serum Folate Stool Occult Blood Negative Blood Type A POSITIVE A POSITIVE Antibody Screen Negative Negative Crossmatch See Detail See Detail 02/27/20 02/27/20 11:20 11:20 WBC 6.4 RBC 3.28 L Hgb 6.5 L* Hct 21.1 L MCV 64.2 L MCH 19.7 L D MCHC 30.6 L RDW 22.5 H Plt Count 376 MPV 8.5 Absolute Neuts (auto) 4.6 Neutrophils % 71.9 Lymphocytes % 19.5 D Monocytes % 7.4 Eosinophils % 0.7 Basophils % 0.5 D Nucleated RBC % 0 Hypochromia Platelet Estimate Platelet Comment Polychromasia Poikilocytosis Anisocytosis Microcytosis Ovalocytes [place] Cells Fragmented RBCs Retic Count 1.70 H PT with INR INR PTT (Actin FS) Sodium 139 Potassium 3.9 Chloride 104 Carbon Dioxide 30 Anion Gap 6 L BUN 12.9 Creatinine 0.8 Est GFR (CKD-EPI)AfAm 77.92 Est GFR (CKD-EPI)NonAf 67.23 Random Glucose 92 Calcium 9.0 Magnesium Iron TIBC Iron Saturation Unsaturated IBC Total Bilirubin 0.4 AST 21 ALT 19 Alkaline Phosphatase 90 Creatine Kinase Troponin I Total Protein 6.6 Albumin 2.6 L Vitamin B12 Serum Folate Stool Occult Blood Blood Type Antibody Screen Crossmatch Current Medications Generic Name Dose Route Start Last Admin Trade Name Freq PRN Reason Stop Dose Admin Amlodipine Besylate 5 mg 02/28/20 10:00 Norvasc - PO DAILY VICTORINO Atorvastatin Calcium 40 mg 02/27/20 22:00 Lipitor - PO HS VICTORINO Ferrous Sulfate 325 mg 02/27/20 08:00 02/27/20 08:33 Feosol - PO 325 mg BIDWM [facility] Administration Home Medications Medication Instructions Recorded Amiodarone HCl 100 mg PO DAILY 02/27/20 Amlodipine Besylate [Norvasc -] 5 mg PO DAILY 02/27/20 Apixaban [Eliquis -] 2.5 mg PO BID 02/27/20 Atorvastatin Ca [Lipitor] 40 mg PO HS 02/27/20 Hydrochlorothiazide [Hctz -] 25 mg PO DAILY 02/27/20 ASSESSMENT AND PLAN: 85 year old female wit history of CVA with residual dysphasia (2018), Atrial Fibrillation (on Eliquis), presents after a syncopal episode, found to be severely anemic. CXR - Cardiomeglay, distal R clavicular fracture, unclear age. 1. Syncope likely secondary to Severe Anemia, exclude arrhythmia CT head - moderate atrophy, encephalomalacia, no acute findings. ECG - no acute changes, non-specific T wave changes, prolonged QTc 544 No telemonitoring events overnight Etiology of prolonged QTC ?Amiodarone Echo, Carotid Duplex ordered. Cardiology consulted for further recommendations 2. Iron Deficiency Anemia etiology unclear CT A/P - fecal retention/impaction Iron Sat 1% FOBT negative No evidence of acute blood loss H/H 6.5/21 s/p 2 units PRBCs Will transfuse another unit PRBC GI consulted for further work up/recommendations for anemia and fecal impaction. Eliquis held. 3. Hx CVA with residual dysphasia (2019) Continue Lipitor. Eliquis held. 4. Atrial Fibrillation - on Amiodarone and Eliquis normally. Eliquis now held in context of severe anemia. Cardiology to evaluate need for Amiodarone given prolonged QTc. 5. HTN - Continue Norvasc. Hold HCTZ. DVT Px - on Eliquis.
--- NOTE | 2020-02-27 16:14 | CON.CARD ---
Cardiology Consult (text) - Consultation Consultation Note: cc: syncope hpi: 85 f hx afib on ac, cva, htn, hld, here with syncope. Yesterday had dinner and was waiting outside restaurant for car and fainted, daughter caught her and placed her in chair and she had loc for 3 mins. Pt does not recall details of event, denies hx of such, feels well now. No cp sob palps dizzy pnd orthopnea le edema. In er found to have hgb 5s. pmh:per hpi psh: none social: no tob fam: no premature cad, scd ros: per hpi; all others nl meds: Ambulatory Orders Amiodarone HCl 100 mg PO DAILY 02/27/20 Amlodipine Besylate [Norvasc -] 5 mg PO DAILY 02/27/20 Apixaban [Eliquis -] 2.5 mg PO BID 02/27/20 Atorvastatin Ca [Lipitor] 40 mg PO HS 02/27/20 Hydrochlorothiazide [Hctz -] 25 mg PO DAILY 02/27/20 Current Medications Generic Name Dose Route Start Last Admin Trade Name Freq PRN Reason Stop Dose Admin Amlodipine Besylate 5 mg 02/28/20 10:00 Norvasc - PO DAILY VICTORINO Atorvastatin Calcium 40 mg 02/27/20 22:00 Lipitor - PO HS VICTORINO pe: Vital Signs Period Temp Pulse Resp BP Sys/Vega Pulse Ox Last 24 Hr 97.5 F-99.1 F 50-111 14-20 112-146/49-70 96-100 nad no jvd rrr s1s2 no mrg cta bl nl eff aao3 no le e/c/c abd nt nd pos bs no jaundice diaphoresis pos dp pt no carotid bruits Laboratory Last Values WBC 6.4 K/mm3 (4.0-10.0) 02/27/20 11:20 RBC 3.28 M/mm3 (3.60-5.2) L 02/27/20 11:20 Hgb 6.5 GM/dL (10.7-15.3) L* 02/27/20 11:20 Hct 21.1 % (32.4-45.2) L 02/27/20 11:20 MCV 64.2 fl (80-96) L 02/27/20 11:20 MCH 19.7 pg (25.7-33.7) L D 02/27/20 11:20 MCHC 30.6 g/dl (32.0-36.0) L 02/27/20 11:20 RDW 22.5 % (11.6-15.6) H 02/27/20 11:20 Plt Count 376 K/MM3 (134-434) 02/27/20 11:20 MPV 8.5 fl (7.5-11.1) 02/27/20 11:20 Absolute Neuts (auto) 4.6 K/mm3 (1.5-8.0) 02/27/20 11:20 Neutrophils % 71.9 % (42.8-82.8) 02/27/20 11:20 Lymphocytes % 19.5 % (8-40) D 02/27/20 11:20 Monocytes % 7.4 % (3.8-10.2) 02/27/20 11:20 Eosinophils % 0.7 % (0-4.5) 02/27/20 11:20 Basophils % 0.5 % (0-2.0) D 02/27/20 11:20 Nucleated RBC % 0 % (0-0) 02/27/20 11:20 Hypochromia 3+ 02/26/20 22:35 Platelet Estimate Adequate 02/26/20 22:35 Platelet Comment Giant platelets 02/26/20 22:35 Polychromasia 1+ 02/26/20 22:35 Poikilocytosis 1+ 02/26/20 22:35 Anisocytosis 1+ 02/26/20 22:35 Microcytosis 2+ 02/26/20 22:35 Ovalocytes 1+ 02/26/20 22:35 Ruslan Cells 1+ 02/26/20 22:35 Fragmented RBCs Few 02/26/20 22:35 Retic Count 1.70 % (0.5-1.5) H 02/27/20 11:20 PT with INR 13.50 SEC (9.7-13.0) H 02/26/20 22:35 INR 1.14 (0.83-1.09) H 02/26/20 22:35 PTT (Actin FS) 27.5 SECONDS (25.2-36.5) 02/26/20 22:35 Sodium 139 mmol/L (136-145) 02/27/20 11:20 Potassium 3.9 mmol/L (3.5-5.1) 02/27/20 11:20 Chloride 104 mmol/L (98-107) 02/27/20 11:20 Carbon Dioxide 30 mmol/L (21-32) 02/27/20 11:20 Anion Gap 6 MMOL/L (8-16) L 02/27/20 11:20 BUN 12.9 mg/dL (7-18) 02/27/20 11:20 Creatinine 0.8 mg/dL (0.55-1.3) 02/27/20 11:20 Est GFR (CKD-EPI)AfAm 77.92 02/27/20 11:20 Est GFR (CKD-EPI)NonAf 67.23 02/27/20 11:20 Random Glucose 92 mg/dL (74-106) 02/27/20 11:20 Calcium 9.0 mg/dL (8.5-10.1) 02/27/20 11:20 Magnesium 2.3 mg/dL (1.8-2.4) 02/26/20 22:35 Iron 9 ug/dL (50-175) L 02/26/20 22:35 TIBC 466 ug/dL (250-450) H 02/26/20 22:35 Iron Saturation 1 % (17.5-39) L 02/26/20 22:35 Unsaturated IBC 457 ug/dL (200-275) H 02/26/20 22:35 Total Bilirubin 0.4 mg/dL (0.2-1) 02/27/20 11:20 AST 21 U/L (15-37) 02/27/20 11:20 ALT 19 U/L (13-61) 02/27/20 11:20 Alkaline Phosphatase 90 U/L (45-117) 02/27/20 11:20 Creatine Kinase 102 U/L (26-192) 02/26/20 22:35 Troponin I < 0.02 ng/ml (0.00-0.05) 02/26/20 22:35 Total Protein 6.6 g/dl (6.4-8.2) 02/27/20 11:20 Albumin 2.6 g/dl (3.4-5.0) L 02/27/20 11:20 Vitamin B12 604 pg/ml (193-986) 02/26/20 22:35 Serum Folate 9 ng/mL (3.1-17.5) 02/26/20 22:35 Stool Occult Blood Negative (NEGATIVE) 02/26/20 23:38 Blood Type A POSITIVE 02/27/20 00:01 Antibody Screen Negative 02/27/20 00:01 Crossmatch See Detail 02/27/20 00:01 cxr: clear ecg: sr, unremarkable, manual qtc wnl echo 01/2020: nl lv/rv, mild ar, mild as, nl rvsp a/p: 85 f hx afib on ac, cva, htn, hld, here with syncope. syncope: -most likely due to severe anemia -echo and ecg unremarkable (manual qtc is wnl on ecg) -monitor on tele, check ortho vitals anemia: -s/p prbcs -GI eval pending htn: -cont norvasc, monitor bp. was also on hctz at home, holding due to lower bp at times here hld: -cont statin pafib: -in sr here -hold home eliquis in setting of severe anemia here
[2020-02-27] MEDS ORDERED: DOCUSATE SODIUM 100 MG CAPSULE (FP) PO PRN (16:25)
[2020-02-27] MEDS ORDERED: POLYETHYLENE GLYCOL 3350 119 GM BTL PO SCH (16:30)
--- NOTE | 2020-02-27 16:41 | CON.GI ---
Consult Consult Specialty:: GI Referred by:: Hospitalist Story Reason for Consultation:: Anemia - History of Present Illness Chief Complaint: Syncopized History of Present Illness: 85F, syncopized while at dinnder with family. Hgb noted to be 5.4. Getting transfused. No overt bleeding. Significant fecal impaction on CT scan. Remote history of colonoscopy. Currently no focal complaints. Spoke with daughter Zakia over phone. Had limited information about her mother's medical history. She may have had ? hirschsprung's. She may have had a colstomy that was reversed at some point. Gave me her Brother Troy's cell # (apparently he is the HCP) [phone]. Called and left message to discuss. Ms. Novoa has her care through [facility]. Unclear when last took eliquis. - History Source History Provided By: Patient, Medical Record Limitations to Obtaining History: Poor Historian - Past Medical History FINANCIAL SYSTEMS MANAGER: Yes: CVA Cardio/Vascular: Yes: AFIB, HTN Gastrointestinal: Yes: Constipation, Other (? Hirschsprung's) - Past Surgical History Past Surgical History: Yes: Colostomy Additional Surgical History: Multiple abdominal scars. unclear surgeries - Alcohol/Substance Use Hx Alcohol Use: No History of Substance Use: reports: None - Smoking History Smoking history: Never smoked Have you smoked in the past 12 months: No - Social History Place of : [facility] History of Recent Travel: No Home Medications - Allergies Allergies/Adverse Reactions: Allergies Allergy/AdvReac Type Severity Reaction Status Date / Time No Known Allergies Allergy Verified 02/27/20 06:17 - Home Medications Home Medications: Ambulatory Orders Amiodarone HCl 100 mg PO DAILY 02/27/20 Amlodipine Besylate [Norvasc -] 5 mg PO DAILY 02/27/20 Apixaban [Eliquis -] 2.5 mg PO BID 02/27/20 Atorvastatin Ca [Lipitor] 40 mg PO HS 02/27/20 Hydrochlorothiazide [Hctz -] 25 mg PO DAILY 02/27/20 Family Medical History Family History: Unable to Obtain Review of Systems - Review of Systems Constitutional: denies: Chills Cardiovascular: denies: Chest Pain Respiratory: denies: Cough Gastrointestinal: reports: Constipation. denies: Abdominal Pain Physical Exam-GI Vital Signs: Vital Signs Temperature 98.4 F 02/27/20 14:58 Pulse Rate 57 L 02/27/20 14:58 Respiratory Rate 17 02/27/20 14:58 Blood Pressure 125/70 02/27/20 14:58 O2 Sat by Pulse Oximetry (%) 97 02/27/20 14:58 Constitutional: Yes: Calm Eyes: No: Sclera Icterus Cardiovascular: Yes: Regular Rate and Rhythm, Bradycardia (regular rhythm) Gastrointestinal Inspection: Yes: Scars (Mutiple). No: Distention ...Auscultate: Yes: Normoactive Bowel Sounds ...Palpate: Yes: Soft. No: Hepatomegaly, Splenomegaly, Tenderness ...Percussion: No: Tympanitic ...Rectal Exam: Yes: Other (light brown fecal impaction, guaiac tracely positive) Edema: No (No LE edema) Neurological: Yes: Alert, Aphasia (expressive) Labs: CBC, BMP 02/27/20 11:20 02/27/20 11:20 INR, PTT INR 1.14 (0.83-1.09) H 02/26/20 22:35 Hepatic Panel Total Bilirubin 0.4 mg/dL (0.2-1) 02/27/20 11:20 AST 21 U/L (15-37) 02/27/20 11:20 ALT 19 U/L (13-61) 02/27/20 11:20 Alkaline Phosphatase 90 U/L (45-117) 02/27/20 11:20 Albumin 2.6 g/dl (3.4-5.0) L 02/27/20 11:20 Imaging - Results Cat Scan: Report Reviewed, Image Reviewed Problem List - Problems (1) Anemia Assessment/Plan: Microcytic anemia Tracely guaiac positive on my exam without overt melena / rectal bleed history Discussed EGD/Colonoscopy with Ms. Abdullahi to evaluate source of anemia such as bleeding blood vessels, PUD, polyps, cancer of GI tract. Discussed potential risks of the procedure like but not limited to bleeding, perforation requiring surgery to repair, infection, sedation medication effects all of which could be potentially life threatening. She said "i dont know". I called the contact number for her daughter zakia, who gave me the number of her brother donny. She stated that Troy is Ms. Novoa' HCP ([phone]) When goals of care are clarified with Ms. Novoa and her family, once she is medically optimized, Eliquis has been held, evaluated by cardiology, impaction addressed, EGD and colonoscopy can be undertaken. Keep Hgb 8 Would d/w cardiology. If needs bridging A/C would start, monitor. Protonix 40mg daily Code(s): D64.9 - ANEMIA, UNSPECIFIED Qualifiers: Anemia type: unspecified type Qualified Code(s): D64.9 - Anemia, unspecified (2) Fecal impaction of colon Assessment/Plan: Discussed with residential framing carpenter Sandeep. Ms. Abdullahi will need to be manually disimpacted and started on a bowel regimen. MiraLAX 17g TID, Senokot 2 tabs nightly Code(s): K56.41 - FECAL IMPACTION
[2020-02-27 17:49] LABS: EPI CELLS >36 /uL (0-25.1); HYALINE CASTS 3 /uL (0-3.1); PH,URINE 6.5 (5.0-8.0); URINE APPEARANCE CLOUDY; URINE BACTERIA 3549 /uL (0-1359); URINE BILIRUBIN NEGATIVE (NEGATIVE); URINE COLOR YELLOW; URINE GLUCOSE (UA) NEGATIVE (NEGATIVE); URINE KETONE NEGATIVE (NEGATIVE); URINE LEUK ESTERASE 3+ (NEGATIVE); URINE NITRITE NEGATIVE (NEGATIVE); URINE PROTEIN NEGATIVE (NEGATIVE); URINE RBC 7 /uL (0-23.9); URINE WBC 484 /uL (0-25.8)
[2020-02-27 19:38] VITALS: BMI 20.9
[2020-02-27 21:10] LABS: BASO % 0.5 % (0-2.0); EOS % 0.8 % (0-4.5); HEMATOCRIT 25.4 % (32.4-45.2); HEMOGLOBIN 7.9 GM/dL (10.7-15.3); LYMPH % 21.1 % (8-40); MCH 20.7 pg (25.7-33.7); MCHC 31.3 g/dl (32.0-36.0); MEAN CELL VOLUME 66.1 fl (80-96); MEAN PLT VOLUME 8.4 fl (7.5-11.1); MONO % 8.8 % (3.8-10.2); NEUT % 68.8 % (42.8-82.8); PLATELET COUNT 374 K/MM3 (134-434); RBC 3.84 M/mm3 (3.60-5.2); RDW 23.8 % (11.6-15.6); WHITE BLOOD COUNT 6.5 K/mm3 (4.0-10.0)
[2020-02-27] MEDS: POLYETHYLENE GLYCOL 3350 119 GM BTL PO SCH (23:12)
[2020-02-27] MEDS: DOCUSATE SODIUM 100 MG CAPSULE (FP) PO SCH (23:12)
[2020-02-27] MEDS: ATORVASTATIN CA 40 MG TABLET (FP) PO SCH (23:12)
[2020-02-27] MEDS: SENNOSIDES 8.6MG TABLET (FP) PO SCH (23:13)
--- NOTE | 2020-02-28 06:33 | PN ---
Progress Note, Physician Chief Complaint: TELE: NSR, sinus carilne. Rare PVCs Denies CP/SOB s/p PRBCs History of Present Illness: anemia requiring PRBC AR Nonsmoker - Current Medication List Current Medications: Active Medications Amlodipine Besylate (Norvasc -) 5 mg PO DAILY [facility] Atorvastatin Calcium (Lipitor -) 40 mg PO [facility] Last Admin: 02/27/20 23:12 Dose: 40 mg Documented by: Docusate Sodium (Colace -) 100 mg PO BID [facility] Last Admin: 02/27/20 23:12 Dose: 100 mg Documented by: Pantoprazole Sodium (Protonix -) 40 mg PO DAILY [facility] Polyethylene Glycol (Miralax (For Daily Use) -) 17 gm PO TID [facility] Last Admin: 02/27/20 23:12 Dose: 17 grams Documented by: Senna (Senna -) 2 tab PO [facility] Last Admin: 02/27/20 23:13 Dose: 2 tab Documented by: - Objective Vital Signs: Vital Signs Temperature 98.1 F 02/28/20 02:00 Pulse Rate 45 L 02/28/20 02:00 Respiratory Rate 18 02/28/20 02:00 Blood Pressure 130/52 L 02/28/20 02:00 O2 Sat by Pulse Oximetry (%) 98 02/27/20 22:00 Constitutional: Yes: No Distress, Calm Cardiovascular: Yes: Regular Rate and Rhythm, Murmur (soft systolic murmur non radiating) Respiratory: Yes: CTA Bilaterally Gastrointestinal: Yes: Soft (nt) Edema: No ...Motor Strength: WNL Labs: CBC, BMP 02/27/20 20:45 02/27/20 11:20 INR, PTT INR 1.14 (0.83-1.09) H 02/26/20 22:35 Laboratory Tests 02/26/20 02/27/20 02/28/20 23:38 05:44 06:31 WBC 7.0 Hgb 8.1 L Plt Count 411 Sodium Potassium Creatinine Stool Occult Blood Negative COVID-19 ([facility]) Not detected 02/28/20 06:31 WBC Hgb Plt Count Sodium 142 Potassium 3.9 Creatinine 0.8 Stool Occult Blood COVID-19 ([facility]) - ....Imaging EKG: Image Reviewed Assessment/Plan DATA: echo 01/2020: nl lv/rv, mild ar, mild as, nl rvsp a/p: 85 f hx afib on ac, cva, htn, hld, here with syncope. syncope: -Sinus carline noted, but not to degree that would cause syncope. No high grade block noted. Avoid AV geni agents. Check TSH -most likely due to severe anemia -echo and ecg unremarkable (manual qtc is wnl on ecg) -monitor on tele -Check orthostatics anemia: -s/p prbcs -GI consulted and following. htn: -cont norvasc, monitor bp. was also on hctz at home, holding due to lower bp at times here hld: -cont statin pafib: -in sr here -hold home eliquis in setting of severe anemia here
[2020-02-28] MEDS: POLYETHYLENE GLYCOL 3350 119 GM BTL PO SCH ×3 (06:43→22:45)
[2020-02-28 07:50] LABS: BASO % 1.7 % (0-2.0); HEMATOCRIT 26.1 % (32.4-45.2); HEMOGLOBIN 8.1 GM/dL (10.7-15.3); LYMPH % 23.4 % (8-40); MCH 20.1 pg (25.7-33.7); MCHC 31.1 g/dl (32.0-36.0); MEAN CELL VOLUME 64.7 fl (80-96); MEAN PLT VOLUME 8.7 fl (7.5-11.1); MONO % 8.9 % (3.8-10.2); PLATELET COUNT 411 K/MM3 (134-434); RBC 4.03 M/mm3 (3.60-5.2); RDW 23.8 % (11.6-15.6)
[2020-02-28 08:18] LABS: ALBUMIN 2.5 g/dl (3.4-5.0); BILIRUBIN,TOTAL 0.9 mg/dL (0.2-1); BLOOD UREA NITROGEN 9.4 mg/dL (7-18); CALCIUM 8.9 mg/dL (8.5-10.1); CREATININE 0.8 mg/dL (0.55-1.3); MAGNESIUM 2.3 mg/dL (1.8-2.4); PHOSPHOROUS 3.8 mg/dL (2.5-4.9); POTASSIUM 3.9 mmol/L (3.5-5.1); TOT PROT 6.4 g/dl (6.4-8.2)
[2020-02-28] MEDS ORDERED: PT OWN MED DRAWER 7, Y5N ONE ×2 (09:57→16:58)
[2020-02-28] MEDS: PANTOPRAZOLE 40 MG TABLET PO SCH (10:00)
[2020-02-28] MEDS ORDERED: amLODIPine BESYLATE 5 MG TABLET (FP) PO SCH (10:00)
[2020-02-28] MEDS: DOCUSATE SODIUM 100 MG CAPSULE (FP) PO SCH ×2 (10:00→22:43)
--- NOTE | 2020-02-28 11:27 | EKG ---
Test Reason : Blood Pressure : / mmHG Vent. Rate : 052 BPM Atrial Rate : 052 BPM P-R Int : 172 ms QRS Dur : 086 ms QT Int : 582 ms P-R-T Axes : 052 -08 106 degrees QTc Int : 541 ms SINUS BRADYCARDIA NONSPECIFIC ST AND T WAVE ABNORMALITY PROLONGED QT ABNORMAL ECG WHEN COMPARED WITH ECG OF 26-FEB-2020 22:59, NO SIGNIFICANT CHANGE WAS FOUND Confirmed by HEATHER JUNE MD ([id number]) on 02/28/2020 11:27:25 AM Referred By: Confirmed By:HEATHER JUNE MD
--- NOTE | 2020-02-28 12:05 | PN.GI ---
GI Progress Note Subjective: no acute events states feeling well Covid negative - Objective Vital Signs: Vital Signs Temperature 98.6 F 02/28/20 06:00 Pulse Rate 54 L 02/28/20 06:00 Respiratory Rate 18 02/28/20 09:00 Blood Pressure 103/49 L 02/28/20 06:00 O2 Sat by Pulse Oximetry (%) 98 02/28/20 09:00 Constitutional: Calm Cardiovascular: Yes: Bradycardia, Murmur Respiratory: Yes: CTA Bilaterally Gastrointestinal Inspection: Yes: Scars ...Auscultate: Yes: Normoactive Bowel Sounds ...Percussion: No: Tympanitic Edema: No (No LE edema) Neurological: Yes: Alert Labs: CBC, BMP 02/28/20 06:31 02/28/20 06:31 INR, PTT INR 1.14 (0.83-1.09) H 02/26/20 22:35 Problem List - Problems (1) Anemia Assessment/Plan: No overt bleeding Plan as noted in initial consult Awaiting callback from patient's son Keep Hgb >8 being evaluated by cardiology Code(s): D64.9 - ANEMIA, UNSPECIFIED Qualifiers: Anemia type: unspecified type Qualified Code(s): D64.9 - Anemia, unspecified (2) Fecal impaction of colon Assessment/Plan: Increased miralax to 17g TID Fecally impacted. Patient needed disimpaction. Discussed with medical service representative yesterday Code(s): K56.41 - FECAL IMPACTION
--- NOTE | 2020-02-28 14:40 | PN ---
Teaching Attending Note Name of Resident: Akhil Aldana ATTENDING PHYSICIAN STATEMENT I saw and evaluated the patient. I reviewed the resident's note and discussed the case with the resident. I agree with the resident's findings and plan as documented. SUBJECTIVE: Feels well, no further complaints. No headache/visual disturbance/limb numbness or weakness. No lightheadedness/CP/palpitations. No melena/hematochezia. OBJECTIVE: Afebrile, Hemodynamically Stable. Last Vital Signs Temp Pulse Resp BP Pulse Ox 98.3 F 52 L 18 98/58 L 98 02/28/20 13:55 02/28/20 13:55 02/28/20 13:55 02/28/20 13:55 02/28/20 11:00 HEENT - Atraumatic, Normocephalic. Heart - S1, S2, SM Lungs - clear to auscultation Abdomen - soft, non-tender. Bowel Sounds normal. Extremities - No edema, no calf tenderness. Neuro - AAO x 2. Tone/Power normal all extremities. Laboratory Results - last 24 hr 02/27/20 02/27/20 02/27/20 05:44 13:30 20:45 WBC 6.5 RBC 3.84 Hgb 7.9 L Hct 25.4 L D MCV 66.1 L MCH 20.7 L MCHC 31.3 L RDW 23.8 H Plt Count 374 MPV 8.4 Absolute Neuts (auto) 4.5 Neutrophils % 68.8 Lymphocytes % 21.1 Monocytes % 8.8 Eosinophils % 0.8 Basophils % 0.5 Nucleated RBC % 0 Sodium Potassium Chloride Carbon Dioxide Anion Gap BUN Creatinine Est GFR (CKD-EPI)AfAm Est GFR (CKD-EPI)NonAf Random Glucose Calcium Phosphorus Magnesium Total Bilirubin AST ALT Alkaline Phosphatase Total Protein Albumin Urine Color Yellow Urine Appearance Cloudy Urine pH 6.5 Ur Specific [place] 1.016 Urine Protein Negative Urine Glucose (UA) Negative Urine Ketones Negative Urine Blood Negative Urine Nitrite Negative Urine Bilirubin Negative Urine Urobilinogen 1.0 Ur Leukocyte Esterase 3+ H Urine WBC (Auto) 484 Urine RBC (Auto) 7 Urine Casts (Auto) 3 U Epithel Cells (Auto) >36 Urine Bacteria (Auto) 3549 COVID-19 ([facility]) Not detected 02/28/20 02/28/20 06:31 06:31 WBC 7.0 RBC 4.03 Hgb 8.1 L Hct 26.1 L MCV 64.7 L MCH 20.1 L MCHC 31.1 L RDW 23.8 H Plt Count 411 MPV 8.7 Absolute Neuts (auto) 4.5 Neutrophils % 65.0 Lymphocytes % 23.4 Monocytes % 8.9 Eosinophils % 1.0 Basophils % 1.7 D Nucleated RBC % 0 Sodium 142 Potassium 3.9 Chloride 105 Carbon Dioxide 28 Anion Gap 9 BUN 9.4 Creatinine 0.8 Est GFR (CKD-EPI)AfAm 77.92 Est GFR (CKD-EPI)NonAf 67.23 Random Glucose 84 Calcium 8.9 Phosphorus 3.8 Magnesium 2.3 Total Bilirubin 0.9 AST 21 ALT 21 Alkaline Phosphatase 91 Total Protein 6.4 Albumin 2.5 L Urine Color Urine Appearance Urine pH Ur Specific [place] Urine Protein Urine Glucose (UA) Urine Ketones Urine Blood Urine Nitrite Urine Bilirubin Urine Urobilinogen Ur Leukocyte Esterase Urine WBC (Auto) Urine RBC (Auto) Urine Casts (Auto) U Epithel Cells (Auto) Urine Bacteria (Auto) COVID-19 ([facility]) Current Medications Generic Name Dose Route Start Last Admin Trade Name Freq PRN Reason Stop Dose Admin Amlodipine Besylate 5 mg 02/28/20 10:00 02/28/20 10:09 Norvasc - PO Not Given DAILY [facility] Atorvastatin Calcium 40 mg 02/27/20 22:00 02/27/20 23:12 Lipitor - PO 40 mg HS [facility] Administration Docusate Sodium 100 mg 02/27/20 22:00 02/28/20 10:00 Colace - PO 100 mg BID [facility] Administration Pantoprazole Sodium 40 mg 02/28/20 10:00 02/28/20 10:00 Protonix - PO 40 mg DAILY [facility] Administration Polyethylene Glycol 17 gm 02/27/20 22:00 02/28/20 14:34 Miralax (For Daily Use) - PO 17 grams TID [facility] Administration Senna 2 tab 02/27/20 22:00 02/27/20 23:13 Senna - PO 2 tab HS [facility] Administration Home Medications Medication Instructions Recorded Amiodarone HCl 100 mg PO DAILY 02/27/20 Amlodipine Besylate [Norvasc -] 5 mg PO DAILY 02/27/20 Apixaban [Eliquis -] 2.5 mg PO BID 02/27/20 Atorvastatin Ca [Lipitor] 40 mg PO HS 02/27/20 Hydrochlorothiazide [Hctz -] 25 mg PO DAILY 02/27/20 ASSESSMENT AND PLAN: 85 year old female wit history of CVA with residual dysphasia (2018), Atrial Fibrillation (on Eliquis), presents after a syncopal episode, found to be severely anemic. CXR - Cardiomegaly, distal R clavicular fracture, unclear age. 1. Syncope likely secondary to Severe Anemia, exclude arrhythmia CT head - moderate atrophy, encephalomalacia, chronic L cortical infarct, no acute findings. ECG - no acute changes, non-specific T wave changes, prolonged QTc 544 - repeat today 559 No telemonitoring events overnight beside sinus bradycardia Etiology of prolonged QTC likely Amiodarone - held as per Cardio Echo - normal EF, mild AR, mild . Carotid Duplex - no hemodynamically significant stenosis. Cardiology following. 2. Iron Deficiency Anemia, likely secondary to GI blood loss CT A/P - fecal retention/impaction Iron Sat 1% No evidence of acute blood loss H/H 8.1/26.1 s/p 2 units PRBCs GI consulted - reports FOBT positive - await further work up/recommendations. Possible EGD/[place] Friday 03/02. Eliquis held. 3. Hx CVA with residual dysphasia (2018) Continue Lipitor. Eliquis held due to severe Anemia. 4. Paroxysmal Atrial Fibrillation - on Amiodarone and Eliquis normally. Eliquis now held in context of severe anemia. Cardiology to evaluate need for Amiodarone given prolonged QTc. 5. HTN - Continue Norvasc. Hold HCTZ. 6. HLD - on Statin. 7. Fecal Impaction Started on bowel regimen including Miralax, Senna. s/p manual dis-impaction yesterday. Had spontaneous BM yesterday evening at 11pm. Will attempt manual disimpaction again today if no further BMs. DVT Px - Eliquis held due to GI bleed. SCDs
[2020-02-28] MEDS ORDERED: POTASSIUM CHLORIDE TABS 10 MEQ TABLET.ER (FP) PO ONE (15:32)
--- NOTE | 2020-02-28 16:24 | PN ---
Physical Exam: SUBJECTIVE: No overnight events. Patient seen and examined. Pt has no complaints OBJECTIVE: Vital Signs Period Temp Pulse Resp BP Sys/Vega Pulse Ox Last 24 Hr 97.4 F-98.7 F 45-60 17-18 98-150/49-69 56-99 GENERAL:AAOX2, in NAD. aphasic HEENT: NT/NC; No ptosis, MMM LUNGS: Breath sounds equal, clear to auscultation bilaterally, no wheezes, no crackles, no accessory muscle use. HEART: Regular rate and rhythm, S1, S2. Systolic mumur at L lower sternal border and mitral area ABDOMEN: Soft, nontender, nondistended, normoactive bowel sounds, EXTREMITIES: 2+ pulses, warm, well-perfused, no edema. NEUROLOGICAL: Normal speech, gait not observed. PSYCH: Normal mood, normal affect. SKIN: Warm, dry, normal turgor, no rashes or lesions noted Laboratory Results - last 24 hr 02/27/20 02/27/20 02/27/20 05:44 13:30 20:45 WBC 6.5 RBC 3.84 Hgb 7.9 L Hct 25.4 L D MCV 66.1 L MCH 20.7 L MCHC 31.3 L RDW 23.8 H Plt Count 374 MPV 8.4 Absolute Neuts (auto) 4.5 Neutrophils % 68.8 Lymphocytes % 21.1 Monocytes % 8.8 Eosinophils % 0.8 Basophils % 0.5 Nucleated RBC % 0 Sodium Potassium Chloride Carbon Dioxide Anion Gap BUN Creatinine Est GFR (CKD-EPI)AfAm Est GFR (CKD-EPI)NonAf Random Glucose Calcium Phosphorus Magnesium Total Bilirubin AST ALT Alkaline Phosphatase Total Protein Albumin Urine Color Yellow Urine Appearance Cloudy Urine pH 6.5 Ur Specific [place] 1.016 Urine Protein Negative Urine Glucose (UA) Negative Urine Ketones Negative Urine Blood Negative Urine Nitrite Negative Urine Bilirubin Negative Urine Urobilinogen 1.0 Ur Leukocyte Esterase 3+ H Urine WBC (Auto) 484 Urine RBC (Auto) 7 Urine Casts (Auto) 3 U Epithel Cells (Auto) >36 Urine Bacteria (Auto) 3549 COVID-19 ([facility]) Not detected 02/28/20 02/28/20 06:31 06:31 WBC 7.0 RBC 4.03 Hgb 8.1 L Hct 26.1 L MCV 64.7 L MCH 20.1 L MCHC 31.1 L RDW 23.8 H Plt Count 411 MPV 8.7 Absolute Neuts (auto) 4.5 Neutrophils % 65.0 Lymphocytes % 23.4 Monocytes % 8.9 Eosinophils % 1.0 Basophils % 1.7 D Nucleated RBC % 0 Sodium 142 Potassium 3.9 Chloride 105 Carbon Dioxide 28 Anion Gap 9 BUN 9.4 Creatinine 0.8 Est GFR (CKD-EPI)AfAm 77.92 Est GFR (CKD-EPI)NonAf 67.23 Random Glucose 84 Calcium 8.9 Phosphorus 3.8 Magnesium 2.3 Total Bilirubin 0.9 AST 21 ALT 21 Alkaline Phosphatase 91 Total Protein 6.4 Albumin 2.5 L Urine Color Urine Appearance Urine pH Ur Specific [place] Urine Protein Urine Glucose (UA) Urine Ketones Urine Blood Urine Nitrite Urine Bilirubin Urine Urobilinogen Ur Leukocyte Esterase Urine WBC (Auto) Urine RBC (Auto) Urine Casts (Auto) U Epithel Cells (Auto) Urine Bacteria (Auto) COVID-19 ([facility]) Active Medications Generic Name Dose Route Start Last Admin Trade Name Kjq PRN Reason Stop Dose Admin Amlodipine Besylate 5 mg 02/28/20 10:00 02/28/20 10:09 Norvasc - PO Not Given DAILY [facility] Atorvastatin Calcium 40 mg 02/27/20 22:00 02/27/20 23:12 Lipitor - PO 40 mg HS [facility] Administration Docusate Sodium 100 mg 02/27/20 22:00 02/28/20 10:00 Colace - PO 100 mg BID [facility] Administration Pantoprazole Sodium 40 mg 02/28/20 10:00 02/28/20 10:00 Protonix - PO 40 mg DAILY [facility] Administration Polyethylene Glycol 17 gm 02/27/20 22:00 02/28/20 14:34 Miralax (For Daily Use) - PO 17 grams TID [facility] Administration Senna 2 tab 02/27/20 22:00 02/27/20 23:13 Senna - PO 2 tab HS [facility] Administration CTH: encephalomalacia in L frontal lobe, extending level of slyvian fissure up to centrum semiovale. B/l maxillary antra retention cysts vs polyps, largest me asuring 12 mm on R CTAP: bibasilar consolidation/atelectasis. Fecal retention with rectal impaction. Thickening of rectal wall -ECHO: LV/RV normal. Trace tricuspid/pulmonic regurg. Mild aortic regurg. Mild aortic stenosis -Carotid duplex: plaques; but without evidence of hemodynamically significant stenosis Orthostatic Vitals SUPINE 113/51 HR 46 Seated 120/70 HR 53 Standing 144/80 HR 66 ASSESSMENT/PLAN: 85 YO F PMH HTN, CVA with residual aphasia and Afib (on eliquis) presented s/p a syncopal episode, found to have microcytic anemia. #Syncope 2/2 Microcytic anemia -CT head/CTAP showed no pathology. -on admission, Hgb/Hct 5/18.5. s/p 2 units. -Cardio c/s appreciated. QTC manually measured at 559 ms. Avoid QT prolonging r x. AVOID pt's home amiodarone 2/2 QT prolonging & bradycardic effect -c/w monitoring potassium and magnesium -EKG notable for sinus bradycardia. Avoid AV geni agents. F/u TSH -c/w telemonitoring. -negative for orthostatic hypotension today. re-check orthostatic vitals in AM #Iron deficiency anemia -on admission, Hgb/Hct 5/18.5. s/p 2 units prbc. H&H now 8.1/26.1. -LOW: MCV, iron, iron saturation/// HIGH: TIBC 466; Unsaturated IBC: 457, RDW// NORMAL: Vit B12 (604), Folate (9) -hold home eliquis. -GI consult appreciated. Possible colonoscopy on Monday due to home Eliquis. Goals of care to be clarified w/ pt's son who is the HCP. Keep Hgb > 8 -c/w Protonix 40 mg daily #Fecal Impaction -CTAP: Fecal retention with rectal impaction -[id number] mg PO BID -GI C/s appreciated. Miralax 17 gm PO TID, senna tab PO HS started -rectum disimpacted yesterday. Pt also had BM at 11 PM yesterday. #HTN -hold hydrochlorothiazide to preclude hypovelmia. c/w home dose norvasc #Afib -hold eliquis 2/2 anemia. Hold amiodarone 2/2 prolonged QTC. #H/o CVA with residual dysphasia (2018) -hold eliquis 2/2 anemia -c/w home atorvastatin 40 mg PO HS Continue Lipitor. Eliquis held. #R clavicle fracture on X-ray -no pain on palpation of clavicle. b/l shoulder normal ROM on physical exam. -pt endorsed a mechanical fall in September. She tripped over an object and injured her shoulder. She used ice and the pain eventually resolved. #DVT PPX SCDs eliquis held / iron deficiency anemia. #FEN no IVF monitor lytes Clear liquids #DISPO maintain tele Visit type - Emergency Visit Emergency Visit: Yes ED Registration Date: 02/27/20 Care time: The patient presented to the Emergency Department on the above date and was hospitalized for further evaluation of their emergent condition. - New Patient This patient is new to me today: No - Critical Care Critical Care patient: No - Medication Review Med list reviewed for High Risk Meds patients 65 and older: Yes ATTENDING PHYSICIAN STATEMENT I saw and evaluated the patient. I reviewed the resident's note and discussed the case with the resident. I agree with the resident's findings and plan as documented. SUBJECTIVE: OBJECTIVE: ASSESSMENT AND PLAN:
[2020-02-28] MEDS: SENNOSIDES 8.6MG TABLET (FP) PO SCH (22:44)
[2020-02-28] MEDS: ATORVASTATIN CA 40 MG TABLET (FP) PO SCH (22:44)
[2020-02-29] MEDS: POLYETHYLENE GLYCOL 3350 119 GM BTL PO SCH ×3 (06:33→22:31)
--- NOTE | 2020-02-29 07:40 | PN ---
Progress Note, Physician Chief Complaint: syncope History of Present Illness: tired. denies cp, sob, palp, dizzy - Current Medication List Current Medications: Active Medications Amlodipine Besylate (Norvasc -) 5 mg PO DAILY [facility] Last Admin: 02/28/20 10:09 Dose: Not Given Documented by: Atorvastatin Calcium (Lipitor -) 40 mg PO HS [facility] Last Admin: 02/28/20 22:44 Dose: 40 mg Documented by: Docusate Sodium (Colace -) 100 mg PO BID [facility] Last Admin: 02/28/20 22:43 Dose: 100 mg Documented by: Pantoprazole Sodium (Protonix -) 40 mg PO DAILY [facility] Last Admin: 02/28/20 10:00 Dose: 40 mg Documented by: Polyethylene Glycol (Miralax (For Daily Use) -) 17 gm PO TID [facility] Last Admin: 02/29/20 06:33 Dose: 17 grams Documented by: Senna (Senna -) 2 tab PO [facility] Last Admin: 02/28/20 22:44 Dose: 2 tab Documented by: - Objective Vital Signs: Vital Signs Temperature 98.9 F 02/29/20 06:00 Pulse Rate 50 L 02/29/20 06:00 Respiratory Rate 16 02/29/20 06:00 Blood Pressure 106/45 L 02/29/20 06:00 O2 Sat by Pulse Oximetry (%) 99 02/29/20 06:00 Constitutional: Yes: Well Nourished, No Distress, Calm Cardiovascular: Yes: Regular Rate and Rhythm. No: Gallop, Murmur Respiratory: Yes: Regular, CTA Bilaterally. No: Accessory Muscle Use Extremities: No: Cold Edema: No Neurological: Yes: Alert. No: Seizure Psychiatric: No: Agitated Labs: CBC, BMP 02/28/20 06:31 02/28/20 06:31 INR, PTT INR 1.14 (0.83-1.09) H 02/26/20 22:35 Assessment/Plan echo 01/2020: nl lv/rv, mild ar, mild as, nl rvsp tele: NSR, sinus carline 30s-40 overnight hours a/p: 85 f hx afib on ac, cva, htn, hld, here with syncope. syncope: -sinus carline noted during overnight hours = likely physiologic sec to hi vagal tone. no severe bradycardia or conduction block noted. -episode was most likely due to severe anemia -echo and ecg unremarkable (manual qtc is wnl on ecg) -monitor on tele -Check orthostatics anemia, preop CV eval -s/p prbcs -GI consulted and following. -at acceptable CV risk for EGD/FOC, rec avoid QT-prolonging agents for anesthesia htn: -HCTZ held due to soft bp's -remains 90s-100s--hold amlodipine hld: -cont statin pafib, prolonged QT: -in sr here -amio held for QTc > 500 (no other common offending meds on drug list) -aggressive K/Mag repletion -hold home eliquis in setting of severe anemia here
[2020-02-29] MEDS: DOCUSATE SODIUM 100 MG CAPSULE (FP) PO SCH ×2 (10:52→22:31)
[2020-02-29] MEDS: PANTOPRAZOLE 40 MG TABLET PO SCH (10:52)
--- NOTE | 2020-02-29 11:48 | PN ---
Progress Note (short form) - Note Progress Note: No call back as of yet from patient's son. During my last conversation with Ms. Abdullahi, she stated "I don't know" when asked re: EGD/Colonoscopy. Will need input from her HCP regarding this. Likely will need at least a two day bowel preparation given significant fecal impaction so doubt procedures will be on Monday. If not done (spoke with medical technician assistant on ), she will need manual disimpaction. Problem List - Problems (1) Anemia Code(s): D64.9 - ANEMIA, UNSPECIFIED Qualifiers: Anemia type: unspecified type Qualified Code(s): D64.9 - Anemia, unspecified (2) Fecal impaction of colon Code(s): K56.41 - FECAL IMPACTION
--- NOTE | 2020-02-29 12:07 | PN ---
Teaching Attending Note Name of Resident: Robert Hopkins ATTENDING PHYSICIAN STATEMENT I saw and evaluated the patient. I reviewed the resident's note and discussed the case with the resident. I agree with the resident's findings and plan as documented. SUBJECTIVE: Feels well, no further complaints. No headache/visual disturbance/limb numbness or weakness. No lightheadedness/CP/palpitations. No melena/hematochezia. Multiple BMs overnight and at least 3 x today, loose. OBJECTIVE: Afebrile, Hemodynamically Stable. Last Vital Signs Temp Pulse Resp BP Pulse Ox 98.9 F 50 L 16 106/45 L 99 02/29/20 06:00 02/29/20 06:00 02/29/20 06:00 02/29/20 06:00 02/29/20 06:00 Heart - S1, S2, SM Lungs - clear to auscultation Abdomen - soft, non-tender. Bowel Sounds normal. Extremities - No edema, no calf tenderness. Neuro - AAO x 2. Tone/Power normal all extremities. Current Medications Generic Name Dose Route Start Last Admin Trade Name Kjq PRN Reason Stop Dose Admin Atorvastatin Calcium 40 mg 02/27/20 22:00 02/28/20 22:44 Lipitor - PO 40 mg HS VICTORINO Administration Docusate Sodium 100 mg 02/27/20 22:00 02/29/20 10:52 Colace - PO Not Given BID VICTORINO Pantoprazole Sodium 40 mg 02/28/20 10:00 02/29/20 10:52 Protonix - PO 40 mg DAILY VICTORINO Administration Polyethylene Glycol 17 gm 02/27/20 22:00 02/29/20 06:33 Miralax (For Daily Use) - PO 17 grams TID VICTORINO Administration Senna 2 tab 02/27/20 22:00 02/28/20 22:44 Senna - PO 2 tab HS VICTORINO Administration Home Medications Medication Instructions Recorded Amiodarone HCl 100 mg PO DAILY 02/27/20 Amlodipine Besylate [Norvasc -] 5 mg PO DAILY 02/27/20 Apixaban [Eliquis -] 2.5 mg PO BID 02/27/20 Atorvastatin Ca [Lipitor] 40 mg PO HS 02/27/20 Hydrochlorothiazide [Hctz -] 25 mg PO DAILY 02/27/20 ASSESSMENT AND PLAN: 85 year old female wit history of CVA with residual dysphasia (2018), Atrial Fibrillation (on Eliquis), 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 CXR - Cardiomegaly, distal R clavicular fracture, unclear age. 1. Syncope likely secondary to hypovolemia due to GI blood loss/Severe Anemia CT head - moderate atrophy, encephalomalacia, chronic L cortical infarct, no acute findings. ECG - no acute changes, non-specific T wave changes, prolonged QTc 544 - repeat today 559 No telemonitoring events overnight beside sinus bradycardia Etiology of prolonged QTC likely Amiodarone - stopped. Echo - normal EF, mild AR, mild . Carotid Duplex - no hemodynamically significant stenosis. Cardiology following. 2. Iron Deficiency Anemia, likely secondary to GI blood loss CT A/P - fecal retention/impaction Iron Sat 1% No evidence of acute blood loss H/H 8.1/26.1 s/p 2 units PRBCs, awaiting labwork today GI consulted - reports FOBT positive - await further work up/recommendations. Possible EGD/[place] Friday 03/02. Eliquis held. Family agreed to plan for colonoscopy on medicine team's discussion with them on . Will attempt to reach HCP again today. Unclear reason for delay in administering prep or for further delaying [place]/EGD. 3. Hx CVA with residual dysphasia (2018) Continue Lipitor. Eliquis held due to severe Anemia. 4. Paroxysmal Atrial Fibrillation - on Amiodarone and Eliquis normally. Eliquis now held in context of severe anemia. Amiodarone stopped due to prolonged QTc. 5. HTN - Continue Norvasc. Hold HCTZ. 6. HLD - on Statin. 7. 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 s/p manual dis-impaction 02/26. Had spontaneous loose BMs overnight and this AM. Medicine team will attempt to check vault to ensure BMs not overflow diarrhea. GI opinion on this would be appreciated. DVT Px - Eliquis held due to GI bleed. SCDs
--- NOTE | 2020-02-29 12:41 | PN ---
Progress Note (short form) - Note Progress Note: Called patient's son Troy. He answered. We discussed plan for possible EGD/[place] to assess for potential sources of anemia / iron loss such as bleeding blood vessels, PUD, polyps, cancers of the GI tract such as colon cancer. Discussed potential risks of the procedures like but not limited to bleeding, perforation requiring surgery to repair, infection, sedation medication effects all of which could be potentially life threatening. Explained his mother's apprehension for procedures when I had discussed the same thing with her. he stated that he would be coming there today to speak with her. He has no further information regarding his mother's previous abdominal surgeries and actually was not aware of any. he believes that she did have a colonoscopy 2 years ago within the [facility] system. Was unsure of the results. Gave him my office number so that he can contact me further and let me know if we will be proceeding with procedures here Reviewed cardiology evaluation. Placed at acceptable risk for proposed procedures. Problem List - Problems (1) Anemia Code(s): D64.9 - ANEMIA, UNSPECIFIED Qualifiers: Anemia type: unspecified type Qualified Code(s): D64.9 - Anemia, unspecified (2) Fecal impaction of colon Code(s): K56.41 - FECAL IMPACTION
[2020-02-29 13:54] LABS: BASO % 0.7 % (0-2.0); EOS % 0.8 % (0-4.5); HEMOGLOBIN 8.6 GM/dL (10.7-15.3); LYMPH % 19.4 % (8-40); MCH 20.5 pg (25.7-33.7); MCHC 30.7 g/dl (32.0-36.0); MEAN CELL VOLUME 66.7 fl (80-96); MEAN PLT VOLUME 9.2 fl (7.5-11.1); MONO % 6.2 % (3.8-10.2); NEUT % 72.9 % (42.8-82.8); PLATELET COUNT 405 K/MM3 (134-434); RDW 24.4 % (11.6-15.6); WHITE BLOOD COUNT 8.4 K/mm3 (4.0-10.0)
[2020-02-29 14:36] LABS: ALBUMIN 2.4 g/dl (3.4-5.0); BLOOD UREA NITROGEN 11.6 mg/dL (7-18); CREATININE 0.8 mg/dL (0.55-1.3); MAGNESIUM 2.3 mg/dL (1.8-2.4); PHOSPHOROUS 4.3 mg/dL (2.5-4.9); POTASSIUM 4.1 mmol/L (3.5-5.1); TOT PROT 6.2 g/dl (6.4-8.2)
[2020-02-29 14:46] LABS: BILIRUBIN,TOTAL 0.5 mg/dL (0.2-1)
--- NOTE | 2020-02-29 14:50 | PN ---
Physical Exam: SUBJECTIVE: Patient seen and examined NAEON. Denies abdominal pain. Denies bloody BM OBJECTIVE: Vital Signs Period Temp Pulse Resp BP Sys/Vega Pulse Ox Last 24 Hr 98.3 F-98.9 F 50-57 16-18 95-123/1-51 98-99 GENERAL: AAOX3, in NAD. Pleasant HEENT: NT/NC; pale conjunctivae, MMM LUNGS: Breath sounds equal, clear to auscultation bilaterally, no wheezes, no crackles, no accessory muscle use. HEART: Regular rate and rhythm, S1, S2. No notable murmurs ABDOMEN: Soft, nontender, nondistended, normoactive bowel sounds RECTAL: firm stool in rectum, darkbrown, no gross blood. Firm stool palpated at fingertips, difficult to remove EXTREMITIES: 2+ pulses, warm, well-perfused, no edema. No tenderness of Riight Shoulder. Normal PROM NEUROLOGICAL: Normal speech, gait not observed. PSYCH: Normal mood, normal affect. SKIN: Warm, dry, normal turgor, no rashes or lesions noted Laboratory Results - last 24 hr 02/29/20 02/29/20 12:20 12:20 WBC 8.4 RBC 4.20 Hgb 8.6 L Hct 28.0 L MCV 66.7 L MCH 20.5 L MCHC 30.7 L RDW 24.4 H Plt Count 405 MPV 9.2 Absolute Neuts (auto) 6.1 Neutrophils % 72.9 Lymphocytes % 19.4 Monocytes % 6.2 Eosinophils % 0.8 Basophils % 0.7 Nucleated RBC % 0 Sodium 140 Potassium 4.1 Chloride 105 Carbon Dioxide 32 Anion Gap 3 L BUN 11.6 Creatinine 0.8 Est GFR (CKD-EPI)AfAm 77.92 Est GFR (CKD-EPI)NonAf 67.23 Random Glucose 78 Calcium 9.0 Phosphorus 4.3 Magnesium 2.3 Total Bilirubin 0.5 AST 29 ALT 20 Alkaline Phosphatase 89 Total Protein 6.2 L Albumin 2.4 L TSH 2.94 Active Medications Generic Name Dose Route Start Last Admin Trade Name Freq PRN Reason Stop Dose Admin Atorvastatin Calcium 40 mg 02/27/20 22:00 02/28/20 22:44 Lipitor - PO 40 mg HS VICTORINO Administration Docusate Sodium 100 mg 02/27/20 22:00 08/01/20 10:52 Colace - PO Not Given BID VICTORINO Pantoprazole Sodium 40 mg 02/28/20 10:00 02/29/20 10:52 Protonix - PO 40 mg DAILY VICTORINO Administration Polyethylene Glycol 17 gm 02/27/20 22:00 02/29/20 14:24 Miralax (For Daily Use) - PO Not Given TID VICTORINO Senna 2 tab 02/27/20 22:00 02/28/20 22:44 Senna - PO 2 tab HS VICTORINO Administration ASSESSMENT/PLAN: 85 YO F PMH HTN, ?Hirschsprung, CVA with residual aphasia and Afib (on eliquis) presented s/p a syncopal episode, found to have microcytic anemia. Possibly 2/2 to GIB. #Syncope 2/2 Microcytic anemia -CT head/CTAP showed no pathology. -on admission, Hgb/Hct 5/18.5. s/p 2 units. -Cardio c/s appreciated. QTC manually measured at 559 ms. Avoid QT prolonging rx. AVOID pt's home amiodarone 2/2 QT prolonging & bradycardic effect -c/w monitoring potassium and magnesium -EKG notable for sinus bradycardia. Avoid AV geni agents. F/u TSH -c/w telemonitoring. -negative for orthostatic hypotension today. re-check orthostatic vitals in AM #Iron deficiency anemia -on admission, Hgb/Hct 5/18.5. s/p 2 units prbc. H&H now 8.1/26.1. -LOW: MCV, iron, iron saturation/// HIGH: TIBC 466; Unsaturated IBC: 457, RDW// NORMAL: Vit B12 (604), Folate (9) -hold home eliquis. -GI consult appreciated. Possible colonoscopy on Monday due to home Eliquis. Goals of care to be clarified w/ pt's son who is the HCP. Keep Hgb > 8 -c/w Protonix 40 mg daily #Fecal Impaction -CTAP: Fecal retention with rectal impaction -[id number] mg PO BID, senna HS, miralax TID -rectum disimpaction daily and PRN. #HTN -hold hydrochlorothiazide to preclude hypovelmia. c/w home dose norvasc #Afib -hold eliquis 2/2 anemia. Hold amiodarone 2/2 prolonged QTC. -cardio([place]): --pt is acceptable CV risk for EGD/FOC, but should avoid #H/o CVA with residual dysphasia (2019) -hold eliquis 2/2 anemia -c/w home atorvastatin 40 mg PO HS Continue Lipitor. Eliquis held. #R clavicle fracture on X-ray --likely chronic -no pain on palpation of clavicle. b/l shoulder normal ROM on physical exam. -pt endorsed a mechanical fall in September. She tripped over an object and injured her shoulder. She used ice and the pain eventually resolved. #DVT PPX SCDs eliquis held 2/2 iron deficiency anemia. #FEN no IVF monitor lytes Clear liquids + Boost Clear #DISPO maintain tele Visit type - Emergency Visit Emergency Visit: No - New Patient This patient is new to me today: Yes Date on this admission: 03/01/20 - Critical Care Critical Care patient: No - Medication Review Med list reviewed for High Risk Meds patients 65 and older: Yes ATTENDING PHYSICIAN STATEMENT I saw and evaluated the patient. I reviewed the resident's note and discussed the case with the resident. I agree with the resident's findings and plan as documented. SUBJECTIVE: OBJECTIVE: ASSESSMENT AND PLAN:
[2020-02-29] MEDS: ATORVASTATIN CA 40 MG TABLET (FP) PO SCH (22:31)
[2020-02-29] MEDS: SENNOSIDES 8.6MG TABLET (FP) PO SCH (22:31)
--- NOTE | 2020-03-01 06:35 | PN ---
Progress Note, Physician Chief Complaint: comfortable, alert Denies CP/SOB/palps TELE: Sinus carline, no sig pauses. History of Present Illness: anemia Sinus carline - Current Medication List Current Medications: Active Medications Atorvastatin Calcium (Lipitor -) 40 mg PO HS [facility] Last Admin: 02/29/20 22:31 Dose: 40 mg Documented by: Docusate Sodium (Colace -) 100 mg PO BID [facility] Last Admin: 02/29/20 22:31 Dose: 100 mg Documented by: Pantoprazole Sodium (Protonix -) 40 mg PO DAILY [facility] Last Admin: 02/29/20 10:52 Dose: 40 mg Documented by: Polyethylene Glycol (Miralax (For Daily Use) -) 17 gm PO TID [facility] Last Admin: 02/29/20 22:31 Dose: 17 grams Documented by: Senna (Senna -) 2 tab PO [facility] Last Admin: 02/29/20 22:31 Dose: 2 tab Documented by: - Objective Vital Signs: Vital Signs Temperature 98.5 F 03/01/20 04:00 Pulse Rate 47 L 03/01/20 04:00 Respiratory Rate 18 03/01/20 04:00 Blood Pressure 122/56 L 03/01/20 04:00 O2 Sat by Pulse Oximetry (%) 98 03/01/20 04:00 Constitutional: Yes: No Distress, Calm Eyes: Yes: Conjunctiva Clear, EOM Intact HENT: Yes: Atraumatic, Normocephalic Neck: Yes: Supple Cardiovascular: Yes: Regular Rate and Rhythm Respiratory: Yes: CTA Bilaterally Gastrointestinal: Yes: Soft (nt) Edema: No Neurological: Yes: Alert, Oriented Labs: CBC, BMP 02/29/20 12:20 02/29/20 12:20 INR, PTT INR 1.14 (0.83-1.09) H 02/26/20 22:35 Laboratory Tests 02/27/20 03/01/20 03/01/20 05:44 06:03 06:03 WBC 7.2 Hgb 7.8 L Plt Count 385 Sodium 139 Potassium 3.6 Magnesium 2.2 COVID-19 ([place]) Not detected - ....Imaging EKG: Image Reviewed Assessment/Plan DATA: echo 01/2020: nl lv/rv, mild ar, mild as, nl rvsp a/p: 85 f hx afib on ac, cva, htn, hld, here with syncope. syncope: -sinus carline noted during overnight hours = likely physiologic sec to hi vagal tone. no severe bradycardia or conduction block noted. -episode was most likely due to severe anemia -echo and ecg unremarkable (manual qtc is wnl on ecg) -monitor on tele -Check orthostatics anemia, preop CV eval: -s/p prbcs -GI consulted and following. -at acceptable CV risk for EGD/FOC, rec avoid QT-prolonging agents for anesthesia htn: -HCTZ held due to soft bp's -remains 90s- low 100s--hold amlodipine hld: -cont statin pafib, prolonged QT: -in sr here -amio held for QTc > 500 (no other common offending meds on drug list) -aggressive K/Mag repletion -hold home eliquis in setting of severe anemia here
[2020-03-01] MEDS: POLYETHYLENE GLYCOL 3350 119 GM BTL PO SCH (07:07)
[2020-03-01 07:57] LABS: HEMATOCRIT 24.9 % (32.4-45.2); HEMOGLOBIN 7.8 GM/dL (10.7-15.3); MCH 20.9 pg (25.7-33.7); MCHC 31.3 g/dl (32.0-36.0); MEAN CELL VOLUME 66.7 fl (80-96); MEAN PLT VOLUME 8.6 fl (7.5-11.1); PLATELET COUNT 385 K/MM3 (134-434); RBC 3.73 M/mm3 (3.60-5.2); RDW 25.5 % (11.6-15.6); WHITE BLOOD COUNT 7.2 K/mm3 (4.0-10.0)
[2020-03-01 08:01] LABS: BLOOD UREA NITROGEN 11.6 mg/dL (7-18); CALCIUM 8.7 mg/dL (8.5-10.1); CREATININE 0.8 mg/dL (0.55-1.3); MAGNESIUM 2.2 mg/dL (1.8-2.4); PHOSPHOROUS 4.6 mg/dL (2.5-4.9); POTASSIUM 3.6 mmol/L (3.5-5.1)
[2020-03-01] MEDS: DOCUSATE SODIUM 100 MG CAPSULE (FP) PO SCH ×2 (09:55→21:06)
[2020-03-01] MEDS: PANTOPRAZOLE 40 MG TABLET PO SCH (09:55)
--- NOTE | 2020-03-01 10:55 | PN ---
Progress Note (short form) - Note Progress Note: SUBJECTIVE: Feels well, no further complaints. No headache/visual dist urbance/limb numbness or weakness. No lightheadedness/CP/palpitations. No melena/hematochezia. Loose stool yesterday. Attempted repeat manual dis- impaction yesterday unsuccessful as impaction too proximal to be reached. OBJECTIVE: Afebrile, Hemodynamically Stable. Last Vital Signs Temp Pulse Resp BP Pulse Ox 98.3 F 50 L 16 121/43 L 97 03/01/20 08:43 03/01/20 08:43 03/01/20 08:43 03/01/20 08:43 03/01/20 08:45 Heart - S1, S2, SM Lungs - clear to auscultation Abdomen - soft, non-tender. Bowel Sounds normal. Extremities - No edema, no calf tenderness. Neuro - AAO x 2. Tone/Power normal all extremities. Laboratory Results - last 24 hr 02/26/20 02/29/20 02/29/20 23:38 12:20 12:20 WBC 8.4 RBC 4.20 Hgb 8.6 L Hct 28.0 L MCV 66.7 L MCH 20.5 L MCHC 30.7 L RDW 24.4 H Plt Count 405 MPV 9.2 Absolute Neuts (auto) 6.1 Neutrophils % 72.9 Lymphocytes % 19.4 Monocytes % 6.2 Eosinophils % 0.8 Basophils % 0.7 Nucleated RBC % 0 Sodium 140 Potassium 4.1 Chloride 105 Carbon Dioxide 32 Anion Gap 3 L BUN 11.6 Creatinine 0.8 Est GFR (CKD-EPI)AfAm 77.92 Est GFR (CKD-EPI)NonAf 67.23 Random Glucose 78 Calcium 9.0 Phosphorus 4.3 Magnesium 2.3 Total Bilirubin 0.5 AST 29 ALT 20 Alkaline Phosphatase 89 Total Protein 6.2 L Albumin 2.4 L TSH 2.94 Blood Type A POSITIVE Antibody Screen Negative Crossmatch See Detail 03/01/20 03/01/20 06:03 06:03 WBC 7.2 RBC 3.73 Hgb 7.8 L Hct 24.9 L MCV 66.7 L MCH 20.9 L MCHC 31.3 L RDW 25.5 H Plt Count 385 MPV 8.6 Absolute Neuts (auto) Neutrophils % Lymphocytes % Monocytes % Eosinophils % Basophils % Nucleated RBC % Sodium 139 Potassium 3.6 Chloride 104 Carbon Dioxide 29 Anion Gap 7 L BUN 11.6 Creatinine 0.8 Est GFR (CKD-EPI)AfAm 77.92 Est GFR (CKD-EPI)NonAf 67.23 Random Glucose 89 Calcium 8.7 Phosphorus 4.6 Magnesium 2.2 Total Bilirubin AST ALT Alkaline Phosphatase Total Protein Albumin TSH Blood Type Antibody Screen Crossmatch Current Medications Generic Name Dose Route Start Last Admin Trade Name Freq PRN Reason Stop Dose Admin Atorvastatin Calcium 40 mg 02/27/20 22:00 02/29/20 22:31 Lipitor - PO 40 mg HS VICTORINO Administration Docusate Sodium 100 mg 02/27/20 22:00 03/01/20 09:55 Colace - PO 100 mg BID VICTORINO Administration Pantoprazole Sodium 40 mg 02/28/20 10:00 03/01/20 09:55 Protonix - PO 40 mg DAILY VICTORINO Administration Polyethylene Glycol 17 gm 02/27/20 22:00 03/01/20 07:07 Miralax (For Daily Use) - PO 17 grams TID VICTORINO Administration Senna 2 tab 02/27/20 22:00 02/29/20 22:31 Senna - PO 2 tab HS VICTORINO Administration Home Medications Medication Instructions Recorded Amiodarone HCl 100 mg PO DAILY 02/27/20 Amlodipine Besylate [Norvasc -] 5 mg PO DAILY 02/27/20 Apixaban [Eliquis -] 2.5 mg PO BID 02/27/20 Atorvastatin Ca [Lipitor] 40 mg PO HS 02/27/20 Hydrochlorothiazide [Hctz -] 25 mg PO DAILY 02/27/20 ASSESSMENT AND PLAN: 85 year old female wit history of CVA with residual dysphasia (2019), Atrial Fibrillation (on Eliquis), 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 CXR - Cardiomegaly, distal R clavicular fracture, unclear age. 1. Syncope likely secondary to hypovolemia due to GI blood loss/Severe Anemia CT head - moderate atrophy, encephalomalacia, chronic L cortical infarct, no acute findings. ECG - no acute changes, non-specific T wave changes, prolonged QTc 544 - repeat today 559 No telemonitoring events overnight beside sinus bradycardia Etiology of prolonged QTC likely Amiodarone - stopped. Echo - normal EF, mild AR, mild . Carotid Duplex - no hemodynamically significant stenosis. Cardiology following. 2. Iron Deficiency Anemia, likely secondary to GI blood loss CT A/P - fecal retention/impaction Iron Sat 1% No evidence of acute blood loss H/H 7.8/24.9 s/p 2 units PRBCs. GI consulted - reports FOBT positive - await further work up/recommendations. Po ssible EGD/[place] Friday 03/02. Eliquis held. Family agreed to plan for colonoscopy on medicine team's discussion with them on . No reason for delay in GI Ix from our perspective. 3. Hx CVA with residual dysphasia (2018) Continue Lipitor. Eliquis held due to severe Anemia/GI blood loss. 4. Paroxysmal Atrial Fibrillation - on Amiodarone and Eliquis normally. Eliquis now held in context of severe anemia. Amiodarone stopped due to prolonged QTc. 5. HTN - Continue Norvasc. HCTZ held. 6. HLD - on Statin. 7. 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 s/p manual dis-impaction 02/26 and attempted again 02/28, not terribly successful due to more proximal impaction that was difficult to reach. Had spontaneous loose BMs intermittently 02/28, possibly overflow diarrhea. Further dis-impaction plan/management as per GI. DVT Px - Eliquis held due to GI bleed. SCDs Visit type - Emergency Visit Emergency Visit: Yes ED Registration Date: 02/27/20 Care time: The patient presented to the Emergency Department on the above date and was hospitalized for further evaluation of their emergent condition. - New Patient This patient is new to me today: No - Critical Care Critical Care patient: No - Discharge Referral Referred to [facility] No - Medication Review Med list reviewed for High Risk Meds patients 65 and older: Yes
--- NOTE | 2020-03-01 12:08 | PN ---
Progress Note (short form) - Note Progress Note: Spoke with patient's son fred again. He stated he spoke to his mother and would like to proceed with procedures No GI objection as noted in initial consultation to bridging anticoagulation if this is deemed necessary while waiting for procedures Will attempt bowel preparation today. As noted previously, she has significant fecal retention that may require xtended bowel preparation. aspiration precautions while patient bowel prepping. Problem List - Problems (1) Anemia Code(s): D64.9 - ANEMIA, UNSPECIFIED Qualifiers: Anemia type: unspecified type Qualified Code(s): D64.9 - Anemia, unspecified (2) Fecal impaction of colon Code(s): K56.41 - FECAL IMPACTION
--- NOTE | 2020-03-01 12:21 | PN ---
Progress Note (short form) - Note Progress Note: Rectal disimpaction performed by me on 02/27/2020 and 02/29/2020. On the , rectal examination and disimpaction yielded bountiful brown firm stool with thick gummy consistency. On 02/29/2020, gummy stool was palpated proximally in the rectum, barely reachable by fingertips. Minimal stool removed due limitations of digit length. Patient tolerated encounters well.
[2020-03-01] MEDS ORDERED: BISACODYL 5 MG TABLET.DR (FP) PO ONE (15:00)
[2020-03-01] MEDS ORDERED: PEG 3350/NA SULF BICARB CL/KCL 4000 ML SOLN.RECON PO ONE (16:00)
[2020-03-01 17:40] LABS: HEMATOCRIT 24.3 % (32.4-45.2); HEMOGLOBIN 7.5 GM/dL (10.7-15.3); MCH 20.7 pg (25.7-33.7); MCHC 30.7 g/dl (32.0-36.0); MEAN CELL VOLUME 67.5 fl (80-96); MEAN PLT VOLUME 8.7 fl (7.5-11.1); PLATELET COUNT 359 K/MM3 (134-434); WHITE BLOOD COUNT 6.9 K/mm3 (4.0-10.0)
[2020-03-01] MEDS: ATORVASTATIN CA 40 MG TABLET (FP) PO SCH (21:06)
[2020-03-02 06:50] LABS: BASO % 0.5 % (0-2.0); EOS % 0.6 % (0-4.5); HEMATOCRIT 25.2 % (32.4-45.2); HEMOGLOBIN 7.8 GM/dL (10.7-15.3); LYMPH % 13.2 % (8-40); MCH 20.7 pg (25.7-33.7); MCHC 30.9 g/dl (32.0-36.0); MONO % 5.7 % (3.8-10.2); PLATELET COUNT 353 K/MM3 (134-434); RBC 3.76 M/mm3 (3.60-5.2); RDW 26.4 % (11.6-15.6); WHITE BLOOD COUNT 9.1 K/mm3 (4.0-10.0)
[2020-03-02 07:03] LABS: ALBUMIN 2.4 g/dl (3.4-5.0); BILIRUBIN,TOTAL 0.5 mg/dL (0.2-1); BLOOD UREA NITROGEN 10.4 mg/dL (7-18); CALCIUM 8.4 mg/dL (8.5-10.1); CREATININE 0.7 mg/dL (0.55-1.3); POTASSIUM 3.4 mmol/L (3.5-5.1)
[2020-03-02 08:37] LABS: INR 1.08 (0.83-1.09); PROTHROMBIN TIME (PATIENT) 12.7 SEC (9.7-13.0)
[2020-03-02 08:40] LABS: ACTIVATED PTT 21.2 SECONDS (25.2-36.5)
[2020-03-02] MEDS: POTASSIUM CHLORIDE TABS 20 MEQ TABLET.ER (FP) PO SCH ×3 (09:30→15:16)
[2020-03-02] MEDS: DOCUSATE SODIUM 100 MG CAPSULE (FP) PO SCH ×2 (09:37→20:59)
[2020-03-02] MEDS: PANTOPRAZOLE 40 MG TABLET PO SCH (09:37)
[2020-03-02] MEDS: KCL 10 MEQ IVPB 10 MEQ/100 ML INFUS.BAG IVPB SCH ×3 (09:38→15:08)
[2020-03-02 09:41] LABS: ANISOCYTOSIS 3+; MACROCYTOSIS 0; PLATELET ESTIMATE NORMAL
[2020-03-02 10:13] LABS: MAGNESIUM 2.1 mg/dL (1.8-2.4)
--- NOTE | 2020-03-02 11:19 | PN ---
Progress Note (short form) - Note Progress Note: Chief Complaint: comfortable, alert Denies CP/SOB/palps TELE: Sinus carline, no sig pauses. History of Present Illness: anemia Sinus carline Current Medications Generic Name Dose Route Start Last Admin Trade Name Indira PRN Reason Stop Dose Admin Atorvastatin Calcium 40 mg 02/27/20 22:00 03/01/20 21:06 Lipitor - PO 40 mg HS VICTORINO Administration Docusate Sodium 100 mg 02/27/20 22:00 03/02/20 09:37 Colace - PO 100 mg BID VICTORINO Administration Pantoprazole Sodium 40 mg 02/28/20 10:00 03/02/20 09:37 Protonix - PO 40 mg DAILY VICTORINO Administration Potassium Chloride 20 meq 03/02/20 08:15 03/02/20 11:14 K-Dur - PO 03/02/20 16:16 Not Given Q4H VICTORINO Vital Signs Period Temp Pulse Resp BP Sys/Vega Pulse Ox Last 24 Hr 97.1 F-98.4 F 51-58 16-20 108-128/53-66 96-98 Constitutional: Yes: No Distress, Calm Eyes: Yes: Conjunctiva Clear, EOM Intact HENT: Yes: Atraumatic, Normocephalic Neck: Yes: Supple Cardiovascular: Yes: Regular Rate and Rhythm Respiratory: Yes: CTA Bilaterally Gastrointestinal: Yes: Soft (nt) Edema: No Neurological: Yes: Alert, Oriented Labs: CBC, BMP 03/02/20 05:35 03/02/20 05:35 - ....Imaging EKG: Image Reviewed Assessment/Plan DATA: echo 01/2020: nl lv/rv, mild ar, mild as, nl rvsp a/p: 85 f hx afib on ac, cva, htn, hld, here with syncope. syncope: -sinus carline noted during overnight hours = likely physiologic sec to hi vagal tone. no severe bradycardia or conduction block noted. -episode was most likely due to severe anemia -echo and ecg unremarkable (manual qtc is wnl on ecg) -monitor on tele anemia, preop CV eval: -s/p prbcs -GI consulted and following. -at acceptable CV risk for EGD/FOC, rec avoid QT-prolonging agents for anesthesia htn: -HCTZ held due to soft bp's -remains 90s- low 100s--hold amlodipine hld: -cont statin pafib, prolonged QT: -in sr here -amio held for QTc > 500 (no other common offending meds on drug list) -aggressive K/Mag repletion -hold home eliquis in setting of severe anemia here
--- NOTE | 2020-03-02 13:53 | PN ---
Progress Note (short form) - Note Progress Note: EGD complete. Colonoscopy aborted as patient still fecally impacted. underwent manual disimpaction today instead Monitor H/H. Keep Hgb >8 Repeat bowel preparation today for possible colonoscopy tomorrow Problem List - Problems (1) Anemia Code(s): D64.9 - ANEMIA, UNSPECIFIED Qualifiers: Anemia type: unspecified type Qualified Code(s): D64.9 - Anemia, unspecified (2) Fecal impaction of colon Code(s): K56.41 - FECAL IMPACTION
--- NOTE | 2020-03-02 13:56 | PN ---
Progress Note (short form) - Note Progress Note: Correction, will need repeat covid testing prior to repeat procedure in endo. Ordered for today and plan for colonoscopy wed 03/04. No objection to bridging A/C as needed. Problem List - Problems (1) Anemia Code(s): D64.9 - ANEMIA, UNSPECIFIED Qualifiers: Anemia type: unspecified type Qualified Code(s): D64.9 - Anemia, unspecifi ed (2) Fecal impaction of colon Code(s): K56.41 - FECAL IMPACTION
--- NOTE | 2020-03-02 14:45 | PN ---
Teaching Attending Note Name of Resident: Akhil Aldana ATTENDING PHYSICIAN STATEMENT I saw and evaluated the patient. I reviewed the resident's note and discussed the case with the resident. I agree with the resident's findings and plan as documented. SUBJECTIVE: Feels well, no further complaints. No headache/visual disturbance/limb numbness or weakness. No lightheadedness/CP/palpitations. No melena/hematochezia. Loose stool ongoing since starting bowel prep. OBJECTIVE: Afebrile, Hemodynamically Stable. Last Vital Signs Temp Pulse Resp BP Pulse Ox 97.7 F 50 L 17 140/60 100 03/02/20 13:56 03/02/20 14:33 03/02/20 14:33 03/02/20 14:33 03/02/20 14:33 Heart - S1, S2, SM Lungs - clear to auscultation Abdomen - soft, non-tender. Bowel Sounds normal. Extremities - No edema, no calf tenderness. Neuro - AAO x 3. Tone/Power normal all extremities. Laboratory Results - last 24 hr 03/01/20 03/02/20 03/02/20 15:46 05:35 05:35 WBC 6.9 9.1 RBC 3.60 3.76 Hgb 7.5 L 7.8 L Hct 24.3 L 25.2 L MCV 67.5 L 67.0 L MCH 20.7 L 20.7 L MCHC 30.7 L 30.9 L RDW 26.0 H 26.4 H Plt Count 359 353 MPV 8.7 9.0 Absolute Neuts (auto) 7.2 Neutrophils % 80.0 Lymphocytes % 13.2 D Monocytes % 5.7 Eosinophils % 0.6 Basophils % 0.5 Nucleated RBC % 0 Hypochromia 2+ Platelet Estimate Normal Polychromasia 1+ Poikilocytosis 2+ Anisocytosis 3+ Microcytosis 3+ Macrocytosis 0 Acanthocytes (Spur) 2+ Schistocytes 2+ PT with INR INR PTT (Actin FS) Sodium Potassium Chloride Carbon Dioxide Anion Gap BUN Creatinine Est GFR (CKD-EPI)AfAm Est GFR (CKD-EPI)NonAf Random Glucose Calcium Magnesium Total Bilirubin AST ALT Alkaline Phosphatase Total Protein Albumin Blood Type A POSITIVE Antibody Screen Negative Crossmatch See Detail 03/02/20 03/02/20 05:35 05:35 WBC RBC Hgb Hct MCV MCH MCHC RDW Plt Count MPV Absolute Neuts (auto) Neutrophils % Lymphocytes % Monocytes % Eosinophils % Basophils % Nucleated RBC % Hypochromia Platelet Estimate Polychromasia Poikilocytosis Anisocytosis Microcytosis Macrocytosis Acanthocytes (Spur) Schistocytes PT with INR 12.70 INR 1.08 PTT (Actin FS) 21.2 L Sodium 141 Potassium 3.4 L Chloride 102 Carbon Dioxide 29 Anion Gap 10 BUN 10.4 Creatinine 0.7 Est GFR (CKD-EPI)AfAm 91.57 Est GFR (CKD-EPI)NonAf 79.00 Random Glucose 84 Calcium 8.4 L Magnesium 2.1 Total Bilirubin 0.5 AST 25 ALT 20 Alkaline Phosphatase 77 Total Protein 6.0 L Albumin 2.4 L Blood Type Antibody Screen Crossmatch Current Medications Generic Name Dose Route Start Last Admin Trade Name Freq PRN Reason Stop Dose Admin Atorvastatin Calcium 40 mg 02/27/20 22:00 03/01/20 21:06 Lipitor - PO 40 mg HS VICTORINO Administration Bisacodyl 20 mg 03/03/20 14:00 Dulcolax - PO 03/03/20 14:01 ONCE ONE Docusate Sodium 100 mg 02/27/20 22:00 03/02/20 09:37 Colace - PO 100 mg BID VICTORINO Administration Pantoprazole Sodium 40 mg 02/28/20 10:00 03/02/20 09:37 Protonix - PO 40 mg DAILY VICTORINO Administration Polyethylene Glycol/Electrolytes 4,000 ml 03/03/20 15:00 Golytely Solution - PO 03/03/20 15:01 ONCE ONE Potassium Chloride 20 meq 03/02/20 08:15 03/02/20 11:14 K-Dur - PO 03/02/20 16:16 Not Given Q4H [facility] Home Medications Medication Instructions Recorded Amiodarone HCl 100 mg PO DAILY 02/27/20 Amlodipine Besylate [Norvasc -] 5 mg PO DAILY 02/27/20 Apixaban [Eliquis -] 2.5 mg PO BID 02/27/20 Atorvastatin Ca [Lipitor] 40 mg PO HS 02/27/20 Hydrochlorothiazide [Hctz -] 25 mg PO DAILY 02/27/20 ASSESSMENT AND PLAN: 85 year old female wit history of CVA with residual dysphasia (2019), Atrial Fibrillation (on Eliquis), 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 CXR - Cardiomegaly, distal R clavicular fracture, unclear age. 1. Syncope likely secondary to hypovolemia due to GI blood loss/Severe Anemia CT head - moderate atrophy, encephalomalacia, chronic L cortical infarct, no acute findings. ECG - no acute changes, non-specific T wave changes, prolonged QTc 544 - repeat today 559 No telemonitoring events beside sinus bradycardia Etiology of prolonged QTC likely Amiodarone - stopped. Echo - normal EF, mild AR, mild . Carotid Duplex - no hemodynamically significant stenosis. Cardiology following. 2. Iron Deficiency Anemia, likely secondary to GI blood loss CT A/P - fecal retention/impaction Iron Sat 1% No evidence of acute blood loss H/H 7.8/25.2 s/p 2 units PRBCs. GI consulted - reports FOBT positive - attempted [place] today - but still fecally impacted - for repeat attempt at [place] likely Wed 03/04 after repeat COVID testing. Eliquis held. 3. Hx CVA with residual dysphasia (2018) Continue Lipitor. Eliquis held due to severe Anemia/GI blood loss. Need for bridging to be determined by Cardiology. 4. Paroxysmal Atrial Fibrillation - on Amiodarone and Eliquis normally. Eliquis now held in context of severe anemia - need for bridging to be determined by Cardiology.. Amiodarone stopped due to prolonged QTc. 5. HTN - Continue Norvasc. HCTZ held. 6. HLD - on Statin. 7. 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 s/p manual dis-impaction 02/26 and attempted again 02/28, not terribly successful due to more proximal impaction that was difficult to reach. Further dis-impaction done 03/02 by GI after failed colonoscopy due to poor prep. 8. Hypokalemia - repleted. DVT Px - Eliquis held due to GI blood loss. SCDs
[2020-03-02] MEDS ORDERED: IRON SUCROSE INJECTION 200 MG in SODIUM CHLORIDE 90 ML IVPB ONE ×3 (17:14→19:30)
[2020-03-02] MEDS: ATORVASTATIN CA 40 MG TABLET (FP) PO SCH (20:59)
--- NOTE | 2020-03-02 22:16 | PN ---
Physical Exam: SUBJECTIVE: No overnight events. Patient seen and examined. 3 BMs that were loose 2/2 bowel prep for colonoscopy. OBJECTIVE: Vital Signs Period Temp Pulse Resp BP Sys/Vega Pulse Ox Last 24 Hr 97.1 F-98.2 F 47-57 14-20 113-140/53-70 97-100 GGENERAL:AAOX2, in NAD. aphasic HEENT: NT/NC; No ptosis, MMM LUNGS: Breath sounds equal, clear to auscultation bilaterally, no wheezes, no crackles, no accessory muscle use. HEART: Regular rate and rhythm, S1, S2. Systolic mumur at L lower sternal border and mitral area ABDOMEN: Soft, nontender, nondistended, normoactive bowel sounds, EXTREMITIES: 2+ pulses, warm, well-perfused, no edema. NEUROLOGICAL: Normal speech, gait not observed. PSYCH: Normal mood, normal affect. SKIN: Warm, dry, normal turgor, no rashes or lesions noted Laboratory Results - last 24 hr 03/02/20 03/02/20 03/02/20 05:35 05:35 05:35 WBC 9.1 RBC 3.76 Hgb 7.8 L Hct 25.2 L MCV 67.0 L MCH 20.7 L MCHC 30.9 L RDW 26.4 H Plt Count 353 MPV 9.0 Absolute Neuts (auto) 7.2 Neutrophils % 80.0 Lymphocytes % 13.2 D Monocytes % 5.7 Eosinophils % 0.6 Basophils % 0.5 Nucleated RBC % 0 Hypochromia 2+ Platelet Estimate Normal Polychromasia 1+ Poikilocytosis 2+ Anisocytosis 3+ Microcytosis 3+ Macrocytosis 0 Acanthocytes (Spur) 2+ Schistocytes 2+ PT with INR INR PTT (Actin FS) Sodium 141 Potassium 3.4 L Chloride 102 Carbon Dioxide 29 Anion Gap 10 BUN 10.4 Creatinine 0.7 Est GFR (CKD-EPI)AfAm 91.57 Est GFR (CKD-EPI)NonAf 79.00 Random Glucose 84 Calcium 8.4 L Magnesium 2.1 Total Bilirubin 0.5 AST 25 ALT 20 Alkaline Phosphatase 77 Total Protein 6.0 L Albumin 2.4 L Blood Type A POSITIVE Antibody Screen Negative Crossmatch See Detail 03/02/20 05:35 WBC RBC Hgb Hct MCV MCH MCHC RDW Plt Count MPV Absolute Neuts (auto) Neutrophils % Lymphocytes % Monocytes % Eosinophils % Basophils % Nucleated RBC % Hypochromia Platelet Estimate Polychromasia Poikilocytosis Anisocytosis Microcytosis Macrocytosis Acanthocytes (Spur) Schistocytes PT with INR 12.70 INR 1.08 PTT (Actin FS) 21.2 L Sodium Potassium Chloride Carbon Dioxide Anion Gap BUN Creatinine Est GFR (CKD-EPI)AfAm Est GFR (CKD-EPI)NonAf Random Glucose Calcium Magnesium Total Bilirubin AST ALT Alkaline Phosphatase Total Protein Albumin Blood Type Antibody Screen Crossmatch Active Medications Generic Name Dose Route Start Last Admin Trade Name Freq PRN Reason Stop Dose Admin Atorvastatin Calcium 40 mg 02/27/20 22:00 03/02/20 20:59 Lipitor - PO 40 mg HS VICTORINO Administration Bisacodyl 20 mg 03/03/20 14:00 Dulcolax - PO 03/03/20 14:01 ONCE ONE Docusate Sodium 100 mg 02/27/20 22:00 03/02/20 20:59 Colace - PO Not Given BID VICTORINO Iron Sucrose 200 mg/ Sodium 100 mls @ 100 mls/hr 03/03/20 18:41 Chloride IVPB 03/03/20 19:40 ONCE ONE Pantoprazole Sodium 40 mg 02/28/20 10:00 03/02/20 09:37 Protonix - PO 40 mg DAILY VICTORINO Administration Polyethylene Glycol/Electrolytes 4,000 ml 03/03/20 15:00 Golytely Solution - PO 03/03/20 15:01 ONCE ONE CTH: encephalomalacia in L frontal lobe, extending level of slyvian fissure up to centrum semiovale. B/l maxillary antra retention cysts vs polyps, largest roshan suring 12 mm on R CTAP: bibasilar consolidation/atelectasis. Fecal retention with rectal impaction. Thickening of rectal wall -ECHO: LV/RV normal. Trace tricuspid/pulmonic regurg. Mild aortic regurg. Mild aortic stenosis -Carotid duplex: plaques; but without evidence of hemodynamically significant stenosis ASSESSMENT/PLAN: 85 YO F PMH HTN, CVA with residual aphasia and Afib (on eliquis) presented s/p a syncopal episode, found to have microcytic anemia. #Syncope 2/2 Microcytic anemia -CT head/CTAP showed no pathology. -on admission, Hgb/Hct 5/18.5. s/p 2 units. -Cardio c/s appreciated. QTC manually measured at 559 ms. Avoid QT prolonging rx. AVOID pt's home amiodarone 2/2 QT prolonging & bradycardic effect -c/w monitoring potassium and magnesium -EKG notable for sinus bradycardia. Avoid AV geni agents. F/u TSH -c/w telemonitoring. -negative for orthostatic hypotension today. re-check orthostatic vitals in AM #Iron deficiency anemia -on admission, Hgb/Hct 5/18.5. s/p 2 units prbc. H&H now 8.08/25.1. -LOW: MCV, iron, iron saturation/// HIGH: TIBC 466; Unsaturated IBC: 457, RDW// NORMAL: Vit B12 (604), Folate (9) -hold home eliquis. -c/w Protonix 40 mg daily -GI c/s appreciated. EGD complete. Colonoscopy not completed 2/2 fecal impaction. Pt underwent disimpaction today. Repeat COVID testing results before repeat colonoscopy. Plan for 03/04 a #Fecal Impaction -CTAP: Fecal retention with rectal impaction - mg PO BID -GI C/s appreciated. Miralax 17 gm PO TID, senna tab PO HS started -rectum disimpacted 02/26 & 02/28. Colonoscopy not completed 2/2 fecal impaction. Pt underwent disimpaction today. #HTN -hold hydrochlorothiazide to preclude hypovelmia. c/w home dose norvasc #Afib -hold eliquis 2/2 anemia. Hold amiodarone 2/2 prolonged QTC. #H/o CVA with residual dysphasia (2018) -hold eliquis 2/2 anemia -c/w home atorvastatin 40 mg PO HS Continue Lipitor. Eliquis held. #R clavicle fracture on X-ray -no pain on palpation of clavicle. b/l shoulder normal ROM on physical exam. -pt endorsed a mechanical fall in September. She tripped over an object and injured her shoulder. She used ice and the pain eventually resolved. #DVT PPX SCDs eliquis held 2/2 iron deficiency anemia. #FEN no IVF monitor lytes Clear liquids #DISPO maintain tele Visit type - Emergency Visit Emergency Visit: Yes ED Registration Date: 02/27/20 Care time: The patient presented to the Emergency Department on the above date and was hospitalized for further evaluation of their emergent condition. - New Patient This patient is new to me today: No - Critical Care Critical Care patient: No - Medication Review Med list reviewed for High Risk Meds patients 65 and older: Yes ATTENDING PHYSICIAN STATEMENT I saw and evaluated the patient. I reviewed the resident's note and discussed the case with the resident. I agree with the resident's findings and plan as documented. SUBJECTIVE: OBJECTIVE: ASSESSMENT AND PLAN:
[2020-03-03 07:25] LABS: BASO % 0.3 % (0-2.0); EOS % 0.7 % (0-4.5); HEMATOCRIT 24.2 % (32.4-45.2); HEMOGLOBIN 7.4 GM/dL (10.7-15.3); LYMPH % 21.8 % (8-40); MCH 20.7 pg (25.7-33.7); MCHC 30.6 g/dl (32.0-36.0); MEAN CELL VOLUME 67.8 fl (80-96); MEAN PLT VOLUME 8.7 fl (7.5-11.1); MONO % 9.4 % (3.8-10.2); NEUT % 67.8 % (42.8-82.8); PLATELET COUNT 314 K/MM3 (134-434); RBC 3.57 M/mm3 (3.60-5.2); RDW 27.2 % (11.6-15.6)
[2020-03-03 08:01] LABS: BLOOD UREA NITROGEN 7.2 mg/dL (7-18); CALCIUM 8.3 mg/dL (8.5-10.1); CREATININE 0.7 mg/dL (0.55-1.3); POTASSIUM 3.2 mmol/L (3.5-5.1)
[2020-03-03] MEDS: KCL 10 MEQ IVPB 10 MEQ/100 ML INFUS.BAG IVPB SCH ×2 (08:37→09:43)
[2020-03-03] MEDS: POTASSIUM CHLORIDE TABS 20 MEQ TABLET.ER (FP) PO SCH ×3 (08:39→21:24)
[2020-03-03] MEDS: PANTOPRAZOLE 40 MG TABLET PO SCH (09:08)
[2020-03-03] MEDS: DOCUSATE SODIUM 100 MG CAPSULE (FP) PO SCH (09:08)
--- NOTE | 2020-03-03 12:45 | PN ---
Progress Note (short form) - Note Progress Note: cc: GI bleed s: no chest pain, palps, dizziness, dyspnea Current Medications Generic Name Dose Route Start Last Admin Trade Name Indira PRN Reason Stop Dose Admin Atorvastatin Calcium 40 mg 02/27/20 22:00 03/02/20 20:59 Lipitor - PO 40 mg HS VICTORINO Administration Bisacodyl 20 mg 03/03/20 14:00 Dulcolax - PO 03/03/20 14:01 ONCE ONE Docusate Sodium 100 mg 02/27/20 22:00 03/03/20 09:08 Colace - PO 100 mg BID VICTORINO Administration Iron Sucrose 200 mg/ Sodium 100 mls @ 100 mls/hr 03/03/20 18:41 Chloride IVPB 03/03/20 19:40 ONCE ONE Pantoprazole Sodium 40 mg 02/28/20 10:00 03/03/20 09:08 Protonix - PO 40 mg DAILY VICTORINO Administration Polyethylene Glycol/Electrolytes 4,000 ml 03/03/20 15:00 Golytely Solution - PO 03/03/20 15:01 ONCE ONE Potassium Chloride 20 meq 03/03/20 08:15 03/03/20 08:39 K-Dur - PO 03/03/20 20:16 20 meq Q6H VICTORINO Administration Vital Signs Period Temp Pulse Resp BP Sys/Vega Pulse Ox Last 24 Hr 97.7 F-98.5 F 47-69 14-20 113-142/53-70 95-100 Constitutional: Yes: No Distress, Calm Eyes: Yes: Conjunctiva Clear, EOM Intact HENT: Yes: Atraumatic, Normocephalic Neck: Yes: Supple Cardiovascular: Yes: Regular Rate and Rhythm Respiratory: Yes: CTA Bilaterally Gastrointestinal: Yes: Soft (nt) Edema: No Neurological: Yes: Alert, Oriented no jaundice, diaphoresis not agitated DATA: echo 01/2020: nl lv/rv, mild ar, mild as, nl rvsp tele: sinus a/p: 85 f hx afib on ac, cva, htn, hld, here with syncope. syncope: -sinus carline noted during overnight hours = likely physiologic sec to hi vagal tone. no severe bradycardia or conduction block noted. -episode was most likely due to severe anemia -echo and ecg unremarkable (manual qtc is wnl on ecg) -monitor on tele anemia, preop CV eval: -s/p prbcs -GI consulted and following. -at acceptable CV risk for EGD/FOC, rec avoid QT-prolonging agents for anesthes ia htn: -HCTZ held due to soft bp's -remains 90s- low 100s--hold amlodipine hld: -cont statin pafib, prolonged QT: -in sr here -amio held for QTc > 500 (no other common offending meds on drug list) -aggressive K/Mag repletion -hold home eliquis in setting of severe anemia here
[2020-03-03] MEDS ORDERED: BISACODYL 5 MG TABLET.DR (FP) PO ONE (14:00)
[2020-03-03] MEDS ORDERED: PEG 3350/NA SULF BICARB CL/KCL 4000 ML SOLN.RECON PO ONE (15:00)
--- NOTE | 2020-03-03 15:07 | PN ---
Teaching Attending Note Name of Resident: Akhil Aldana ATTENDING PHYSICIAN STATEMENT I saw and evaluated the patient. I reviewed the resident's note and discussed the case with the resident. I agree with the resident's findings and plan as documented. SUBJECTIVE: Seen and examined at bedside. No complaints. Pending C scope tomorrow. 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 CXR - Cardiomegaly, distal R clavicular fracture, unclear age. # Syncope likely secondary to hypovolemia due to GI blood loss/Severe Anemia CT head - moderate atrophy, encephalomalacia, chronic L cortical infarct, no acute findings. ECG - no acute changes, non-specific T wave changes, prolonged QTc 544 - repeat today 559 No telemonitoring events beside sinus bradycardia Etiology of prolonged QTC likely Amiodarone - stopped. Echo - normal EF, mild AR, mild . Carotid Duplex - no hemodynamically significant stenosis. Cardiology following. # Iron Deficiency Anemia, likely secondary to GI blood loss CT A/P - fecal retention/impaction Iron Sat 1% No evidence of acute blood loss Hgb 7.4 s/p 3 units PRBCs. GI consulted - reports FOBT positive - attempted [place] 03/02 - but still fecally impacted - for repeat attempt at [place] likely Wed 03/04 after repeat COVID testing. Eliquis held. ferrous sulfate # Hx CVA with residual dysphasia (2018) Continue Lipitor. Eliquis held due to severe Anemia/GI blood loss. Need for bridging to be determined by Cardiology. # Paroxysmal Atrial Fibrillation - on Amiodarone and Eliquis normally. Eliquis now held in context of severe anemia - need for bridging to be determined by Cardiology.. Amiodarone stopped due to prolonged QTc. # HTN - Continue Norvasc. HCTZ held. # HLD - on Statin. 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 s/p manual dis-impaction 02/26 and attempted again 02/28, not terribly successful due to more proximal impaction that was difficult to reach. Further dis-impaction done 03/02 by GI after failed colonoscopy due to poor prep. # Hypokalemia - repleted. DVT Px - Eliquis held due to GI blood loss. SCDs
--- NOTE | 2020-03-03 15:16 | PN ---
Physical Exam: SUBJECTIVE: No overnight events. Patient seen and examined. C/o LLQ abd pain, unaffected by movement, meals. Denies radiation of abd pain. Denies nausea, vomiting. OBJECTIVE: Vital Signs Period Temp Pulse Resp BP Sys/Vega Pulse Ox Last 24 Hr 97.7 F-98.5 F 57-69 16-20 128-142/55-70 95-98 GGENERAL:AAOX2, in NAD. aphasic HEENT: NT/NC; No ptosis, MMM LUNGS: Breath sounds equal, clear to auscultation bilaterally, no wheezes, no crackles, no accessory muscle use. HEART: Regular rate and rhythm, S1, S2. Systolic mumur at L lower sternal border and mitral area ABDOMEN: Soft, nontender, nondistended, normoactive bowel sounds, EXTREMITIES: 2+ pulses, warm, well-perfused, no edema. NEUROLOGICAL: Normal speech, gait not observed. PSYCH: Normal mood, normal affect. SKIN: Warm, dry, normal turgor, no rashes or lesions noted Laboratory Results - last 24 hr 02/27/20 03/02/20 03/02/20 00:01 05:35 16:50 WBC RBC Hgb Hct MCV MCH MCHC RDW Plt Count MPV Absolute Neuts (auto) Neutrophils % Lymphocytes % Monocytes % Eosinophils % Basophils % Nucleated RBC % Sodium Potassium Chloride Carbon Dioxide Anion Gap BUN Creatinine Est GFR (CKD-EPI)AfAm Est GFR (CKD-EPI)NonAf Random Glucose Calcium Magnesium COVID-19 (CHEPE) Not detected Blood Type A POSITIVE Antibody Screen Negative Crossmatch See Detail See Detail 03/03/20 03/03/20 06:01 06:01 WBC 6.0 RBC 3.57 L Hgb 7.4 L Hct 24.2 L MCV 67.8 L MCH 20.7 L MCHC 30.6 L RDW 27.2 H Plt Count 314 MPV 8.7 Absolute Neuts (auto) 4.1 Neutrophils % 67.8 Lymphocytes % 21.8 D Monocytes % 9.4 Eosinophils % 0.7 Basophils % 0.3 Nucleated RBC % 0 Sodium 143 Potassium 3.2 L Chloride 106 Carbon Dioxide 32 Anion Gap 5 L BUN 7.2 Creatinine 0.7 Est GFR (CKD-EPI)AfAm 91.57 Est GFR (CKD-EPI)NonAf 79.00 Random Glucose 77 Calcium 8.3 L Magnesium 2.0 COVID-19 (CHEPE) Blood Type Antibody Screen Crossmatch Active Medications Generic Name Dose Route Start Last Admin Trade Name Indira PRN Reason Stop Dose Admin Atorvastatin Calcium 40 mg 02/27/20 22:00 03/02/20 20:59 Lipitor - PO 40 mg HS VICTORINO Administration Iron Sucrose 200 mg/ Sodium 100 mls @ 100 mls/hr 03/03/20 18:41 Chloride IVPB 03/03/20 19:40 ONCE ONE Pantoprazole Sodium 20 mg 03/04/20 10:00 Protonix - PO DAILY VICTORINO Potassium Chloride 20 meq 03/03/20 08:15 03/03/20 14:25 K-Dur - PO 03/03/20 20:16 20 meq Q6H VICTORINO Administration CTH: encephalomalacia in L frontal lobe, extending level of slyvian fissure up to centrum semiovale. B/l maxillary antra retention cysts vs polyps, largest measuring 12 mm on R CTAP: bibasilar consolidation/atelectasis. Fecal retention with rectal impaction. Thickening of rectal wall -ECHO: LV/RV normal. Trace tricuspid/pulmonic regurg. Mild aortic regurg. Mild aortic stenosis -Carotid duplex: plaques; but without evidence of hemodynamically significant stenosis ASSESSMENT/PLAN: 85 YO F PMH HTN, CVA with residual aphasia and Afib (on eliquis) presented s/p a syncopal episode, found to have microcytic anemia. #Syncope 2/2 Microcytic anemia -CT head/CTAP showed no acute pathology. ECHO, EKG unremarkable -on admission, Hgb/Hct 5/18.5. s/p 2 units. -cardio c/s appreciated. manual QTC is WNL. c/w telemonitoring. -sinus bradycardic at night. void QT prolonging rx. AVOID pt's home amiodarone 2/2 QT prolonging & bradycardic effect -c/w monitoring potassium and magnesium #Iron deficiency anemia -on admission, Hgb/Hct 5/18.5. -LOW: MCV, iron, iron saturation/// HIGH: TIBC 466; Unsaturated IBC: 457, RDW// NORMAL: Vit B12 (604), Folate (9) -s/p 2 units prbc. Will get 1 PRBC unit today s/p venofer 200 mg IVPB yesterday. Another Venofer 200 mg IVPB today -hold home eliquis. -c/w Protonix 40 mg daily -Repeat COVID testing negative. Plan for colonoscopy 03/04 -cardio c/s appreciated. Pt at acceptable CV risk for EGD/FOC. Avoid QT- prolonging agents for anesthesia #Fecal Impaction -CTAP: Fecal retention with rectal impaction -s/p [id number] mg PO BID, Miralax 17 gm PO TID, senna tab PO HS -rectum disimpacted 02/26 , 02/28, and during colonoscopy on 03/01. #HTN -hold hydrochlorothiazide to preclude hypovelmia. BP stable. continue holding home dose norvasc #Afib -hold eliquis / anemia. Hold amiodarone /2 prolonged QTC. #H/o CVA with residual dysphasia (2018) -hold eliquis / anemia -c/w home atorvastatin 40 mg PO HS Continue Lipitor. Eliquis held. #R clavicle fracture on X-ray -no pain on palpation of clavicle. b/l shoulder normal ROM on physical exam. -pt endorsed a mechanical fall in September. She tripped over an object and injured her shoulder. She used ice and the pain eventually resolved. #DVT PPX SCDs eliquis held 2/2 iron deficiency anemia. #FEN no IVF monitor lytes NPO #DISPO maintain tele Visit type - Emergency Visit Emergency Visit: Yes ED Registration Date: 02/27/20 Care time: The patient presented to the Emergency Department on the above date and was hospitalized for further evaluation of their emergent condition. - New Patient This patient is new to me today: No - Critical Care Critical Care patient: No - Medication Review Med list reviewed for High Risk Meds patients 65 and older: Yes ATTENDING PHYSICIAN STATEMENT I saw and evaluated the patient. I reviewed the resident's note and discussed the case with the resident. I agree with the resident's findings and plan as documented. SUBJECTIVE: OBJECTIVE: ASSESSMENT AND PLAN:
[2020-03-03] MEDS ORDERED: IRON SUCROSE INJECTION 200 MG in SODIUM CHLORIDE 90 ML IVPB ONE (18:41)
[2020-03-03] MEDS: ATORVASTATIN CA 40 MG TABLET (FP) PO SCH (21:24)
[2020-03-04 08:07] LABS: BASO % 0.2 % (0-2.0); EOS % 0.9 % (0-4.5); HEMATOCRIT 31.1 % (32.4-45.2); HEMOGLOBIN 9.7 GM/dL (10.7-15.3); LYMPH % 23.4 % (8-40); MCH 22.2 pg (25.7-33.7); MCHC 31.2 g/dl (32.0-36.0); MEAN CELL VOLUME 71.2 fl (80-96); MEAN PLT VOLUME 8.7 fl (7.5-11.1); MONO % 8.5 % (3.8-10.2); PLATELET COUNT 284 K/MM3 (134-434); RBC 4.36 M/mm3 (3.60-5.2); RDW 29.6 % (11.6-15.6); WHITE BLOOD COUNT 5.4 K/mm3 (4.0-10.0)
[2020-03-04 08:38] LABS: ALBUMIN 2.2 g/dl (3.4-5.0); BILIRUBIN,TOTAL 0.6 mg/dL (0.2-1); BLOOD UREA NITROGEN 5.6 mg/dL (7-18); CALCIUM 8.5 mg/dL (8.5-10.1); CREATININE 0.7 mg/dL (0.55-1.3); MAGNESIUM 2.1 mg/dL (1.8-2.4); POTASSIUM 3.6 mmol/L (3.5-5.1); TOT PROT 5.7 g/dl (6.4-8.2)
[2020-03-04 08:58] LABS: PHOSPHOROUS 2.8 mg/dL (2.5-4.9)
[2020-03-04] MEDS: PANTOPRAZOLE 20 MG TABLET PO SCH (09:59)
--- NOTE | 2020-03-04 11:57 | PN ---
Progress Note (short form) - Note Progress Note: cc: GI bleed s: no chest pain, palps, dizziness, dyspnea Current Medications Generic Name Dose Route Start Last Admin Trade Name Indira PRN Reason Stop Dose Admin Atorvastatin Calcium 40 mg 02/27/20 22:00 03/03/20 21:24 Lipitor - PO 40 mg HS VICTORINO Administration Pantoprazole Sodium 20 mg 03/04/20 10:00 03/04/20 09:59 Protonix - PO Not Given DAILY VICTORINO Vital Signs Period Temp Pulse Resp BP Sys/Vega Pulse Ox Last 24 Hr 97.9 F-98.4 F 57-69 14-20 128-158/62-81 91-98 Constitutional: Yes: No Distress, Calm Eyes: Yes: Conjunctiva Clear, EOM Intact HENT: Yes: Atraumatic, Normocephalic Neck: Yes: Supple Cardiovascular: Yes: Regular Rate and Rhythm Respiratory: Yes: CTA Bilaterally Gastrointestinal: Yes: Soft (nt) Edema: No Neurological: Yes: Alert, Oriented no jaundice, diaphoresis not agitated DATA: echo 01/2020: nl lv/rv, mild ar, mild as, nl rvsp tele: sinus a/p: 85 f hx afib on ac, cva, htn, hld, here with syncope. syncope: -sinus carline noted during overnight hours = likely physiologic sec to hi vagal tone. no severe bradycardia or conduction block noted. -episode was most likely due to severe anemia -echo and ecg unremarkable (manual qtc is wnl on ecg) -monitor on tele anemia, preop CV eval: -s/p prbcs -GI consulted and following. -at acceptable CV risk for EGD/FOC, rec avoid QT-prolonging agents for anesthesia htn: -HCTZ and amlodipine held due to soft bp's, now BP elevated - resume amlodipine hld: -cont statin pafib, prolonged QT: -in sr here -amio held for QTc > 500 (no other common offending meds on drug list) -aggressive K/Mag repletion -hold home eliquis in setting of severe anemia here
--- NOTE | 2020-03-04 14:12 | PATH ---
Surgical Pathology Report Patient Name: JOSE ALEXANDER Med. Rec. #: [id number] /Age/Gender: 1935 (Age: 85) / F Account: [id number] Location: 4 W TELEMETRY U Taken: 03/02/2020 Received: 03/03/2020 Reported: 03/04/2020 Physicians: Kori Smith MD Specimen(s) Received BX DUODENAL BULB Clinical History Anemia Postoperative diagnosis: Same Final Diagnosis DUODENUM AND BULB, BIOPSY: DUODENAL MUCOSA WITH NO SIGNIFICANT PATHOLOGIC CHANGE. NO HISTOLOGIC EVIDENCE OF INTRAEPITHELIAL LYMPHOCYTOSIS. Electronically Signed Evan Goodwin M.D. Gross Description Received in formalin, labeled "biopsy duodenum and bulb" are 3 ruiz, irregular portions of soft tissue ranging from 0.1-0.2 cm. in greatest dimension. The specimens are submitted in toto in one cassette. 03/03/2020 saudi03/03/2020
--- NOTE | 2020-03-04 14:46 | PN ---
Teaching Attending Note Name of Resident: Akhil Aldana ATTENDING PHYSICIAN STATEMENT I saw and evaluated the patient. I reviewed the resident's note and discussed the case with the resident. I agree with the resident's findings and plan as documented. SUBJECTIVE: Seen and examined at bedside. No complaints. Pending C scope today. Patient received additional unit PRBC unbeknownst to primary team for a total of 2 units yesterday with appropriate response. 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 CXR - Cardiomegaly, distal R clavicular fracture, unclear age. # Syncope likely secondary to hypovolemia due to GI blood loss/Severe Anemia CT head - moderate atrophy, encephalomalacia, chronic L cortical infarct, no acute findings. ECG - no acute changes, non-specific T wave changes, prolonged QTc 544 - repeat today 559 No telemonitoring events beside sinus bradycardia Etiology of prolonged QTC likely Amiodarone - stopped. Echo - normal EF, mild AR, mild . Carotid Duplex - no hemodynamically significant stenosis. Cardiology following. # Iron Deficiency Anemia, likely secondary to GI blood loss CT A/P - fecal retention/impaction Iron Sat 1% No evidence of acute blood loss Hgb 9.7 s/p 4 units PRBCs. GI consulted - reports FOBT positive - attempted [place] 03/02 - but still fecally impacted - for repeat attempt at [place] today Eliquis held. ferrous sulfate # Hx CVA with residual dysphasia (2019) Continue Lipitor. Eliquis held due to severe Anemia/GI blood loss. Need for bridging to be determined by Cardiology. # Paroxysmal Atrial Fibrillation - on Amiodarone and Eliquis normally. Eliquis now held in context of severe anemia - need for bridging to be determined by Cardiology.. Amiodarone stopped due to prolonged QTc. # HTN - Continue Norvasc. HCTZ held. # HLD - on Statin. 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 s/p manual dis-impaction 02/26 and attempted again 02/28, not terribly successful due to more proximal impaction that was difficult to reach. Further dis-impaction done 03/02 by GI after failed colonoscopy due to poor prep. # Hypokalemia - repleted. DVT Px - Eliquis held due to GI blood loss. SCDs
--- NOTE | 2020-03-04 17:17 | PN ---
Physical Exam: SUBJECTIVE: No overnight events. Patient seen and examined. Endorses LLQ abd pain from yesterday resolved. No complaints. colonoscopy today. OBJECTIVE: Vital Signs Period Temp Pulse Resp BP Sys/Vega Pulse Ox Last 24 Hr 97.0 F-98.4 F 55-69 14-20 120-158/50-81 91-100 GGENERAL:AAOX2, in NAD. aphasic HEENT: NT/NC; No ptosis, MMM LUNGS: Breath sounds equal, clear to auscultation bilaterally, no wheezes, no crackles, no accessory muscle use. HEART: Regular rate and rhythm, S1, S2. Systolic mumur at L lower sternal border and mitral area ABDOMEN: Soft, nontender, nondistended, normoactive bowel sounds, EXTREMITIES: 2+ pulses, warm, well-perfused, no edema. NEUROLOGICAL: Normal speech, gait not observed. PSYCH: Normal mood, normal affect. SKIN: Warm, dry, normal turgor, no rashes or lesions noted Laboratory Results - last 24 hr 03/02/20 03/04/20 03/04/20 05:35 05:38 05:58 WBC 5.4 RBC 4.36 Hgb 9.7 L Hct 31.1 L D MCV 71.2 L MCH 22.2 L MCHC 31.2 L RDW 29.6 H Plt Count 284 MPV 8.7 Absolute Neuts (auto) 3.6 Neutrophils % 67.0 Lymphocytes % 23.4 Monocytes % 8.5 Eosinophils % 0.9 Basophils % 0.2 Nucleated RBC % 0 Sodium 142 Potassium 3.6 Chloride 105 Carbon Dioxide 28 Anion Gap 8 BUN 5.6 L Creatinine 0.7 Est GFR (CKD-EPI)AfAm 91.57 Est GFR (CKD-EPI)NonAf 79.00 Random Glucose 71 L Calcium 8.5 Phosphorus 2.8 Magnesium 2.1 Total Bilirubin 0.6 AST 27 ALT 20 Alkaline Phosphatase 94 Total Protein 5.7 L Albumin 2.2 L Blood Type A POSITIVE Antibody Screen Negative Crossmatch See Detail Active Medications Generic Name Dose Route Start Last Admin Trade Name Freq PRN Reason Stop Dose Admin Amlodipine Besylate 5 mg 03/05/20 10:00 Norvasc - PO DAILY VICTORINO Atorvastatin Calcium 40 mg 02/27/20 22:00 03/03/20 21:24 Lipitor - PO 40 mg HS VICTORINO Administration Pantoprazole Sodium 20 mg 03/04/20 10:00 03/04/20 09:59 Protonix - PO Not Given DAILY VICTORINO CTH: encephalomalacia in L frontal lobe, extending level of slyvian fissure up to centrum semiovale. B/l maxillary antra retention cysts vs polyps, largest measuring 12 mm on R CTAP: bibasilar consolidation/atelectasis. Fecal retention with rectal impaction. Thickening of rectal wall -ECHO: LV/RV normal. Trace tricuspid/pulmonic regurg. Mild aortic regurg. Mild aortic stenosis -Carotid duplex: plaques; but without evidence of hemodynamically significant stenosis ASSESSMENT/PLAN: 85 YO F PMH HTN, CVA with residual aphasia and Afib (on eliquis) presented s/p a syncopal episode, found to have microcytic anemia. #Syncope 2/2 Microcytic anemia -CT head/CTAP showed no acute pathology. ECHO, EKG unremarkable -on admission, Hgb/Hct 5/18.5. s/p 2 units. -cardio c/s appreciated. manual QTC is WNL. c/w telemonitoring. -sinus bradycardic at night. void QT prolonging rx. AVOID pt's home amiodarone 2/2 QT prolonging & bradycardic effect -c/w monitoring potassium and magnesium #Iron deficiency anemia -on admission, Hgb/Hct 5/18.5. -LOW: MCV, iron, iron saturation/// HIGH: TIBC 466; Unsaturated IBC: 457, RDW// NORMAL: Vit B12 (604), Folate (9) -s/p 4 units prbc. 1 of those units were given yesterday, 1 unit was given overnight. Hgb is 9.7 -s/p 2/3 venofer 200 mg IVPB. -hold home eliquis. -c/w Protonix 40 mg daily colonoscopy today Rectum: anastomosis visualized with two ulceration 5-7 mm in size without stigmata of recent bleed. Some erythema noted. //Sigmoid, descending colon: normal// transverse colon: one small sessile polyp measuring 6 mm was visualized removed//ceccum normal Anastomosis ulcerations/erythema as etiology of her GI bleed. No active bleeding noted on exam. Internal hemorrhoids grade 1 f/u pathology. Advance diet as tolerated. Avoid NSAID. Surveillance colonoscopy based on pathology #Fecal Impaction -CTAP: Fecal retention with rectal impaction -s/p [id number] mg PO BID, Miralax 17 gm PO TID, senna tab PO HS -rectum disimpacted 02/26 , 02/28, and during colonoscopy on 03/01. #HTN -hold hydrochlorothiazide to preclude hypovelmia. BP stable. continue holding home dose norvasc #Afib -hold eliquis /2 anemia. Hold amiodarone /2 prolonged QTC. #H/o CVA with residual dysphasia (2018) -hold eliquis / anemia -c/w home atorvastatin 40 mg PO HS Continue Lipitor. Eliquis held. #R clavicle fracture on X-ray -no pain on palpation of clavicle. b/l shoulder normal ROM on physical exam. -pt endorsed a mechanical fall in September. She tripped over an object and injured her shoulder. She used ice and the pain eventually resolved. #DVT PPX SCDs eliquis held / iron deficiency anemia. #FEN no IVF monitor lytes NPO #DISPO maintain tele Visit type - Emergency Visit Emergency Visit: Yes ED Registration Date: 02/27/20 Care time: The patient presented to the Emergency Department on the above date and was hospitalized for further evaluation of their emergent condition. - New Patient This patient is new to me today: No - Critical Care Critical Care patient: No - Medication Review Med list reviewed for High Risk Meds patients 65 and older: Yes ATTENDING PHYSICIAN STATEMENT I saw and evaluated the patient. I reviewed the resident's note and discussed the case with the resident. I agree with the resident's findings and plan as documented. SUBJECTIVE: OBJECTIVE: ASSESSMENT AND PLAN:
[2020-03-04] MEDS: ATORVASTATIN CA 40 MG TABLET (FP) PO SCH (22:23)
[2020-03-05 08:03] LABS: BASO % 0.3 % (0-2.0); HEMATOCRIT 29.1 % (32.4-45.2); HEMOGLOBIN 9.2 GM/dL (10.7-15.3); LYMPH % 18.8 % (8-40); MCH 22.6 pg (25.7-33.7); MCHC 31.7 g/dl (32.0-36.0); MEAN CELL VOLUME 71.3 fl (80-96); MEAN PLT VOLUME 8.5 fl (7.5-11.1); MONO % 7.8 % (3.8-10.2); NEUT % 72.1 % (42.8-82.8); PLATELET COUNT 256 K/MM3 (134-434); RBC 4.08 M/mm3 (3.60-5.2); RDW 29.8 % (11.6-15.6); WHITE BLOOD COUNT 6.6 K/mm3 (4.0-10.0)
[2020-03-05 08:19] LABS: BILIRUBIN,TOTAL 0.4 mg/dL (0.2-1); BLOOD UREA NITROGEN 9.6 mg/dL (7-18); CALCIUM 8.3 mg/dL (8.5-10.1); CREATININE 0.7 mg/dL (0.55-1.3); MAGNESIUM 1.9 mg/dL (1.8-2.4); PHOSPHOROUS 3.3 mg/dL (2.5-4.9); POTASSIUM 3.1 mmol/L (3.5-5.1); TOT PROT 5.5 g/dl (6.4-8.2)
[2020-03-05] MEDS: PANTOPRAZOLE 20 MG TABLET PO SCH (09:00)
[2020-03-05] MEDS: amLODIPine BESYLATE 5 MG TABLET (FP) PO SCH (09:00)
[2020-03-05 09:54] LABS: ANISOCYTOSIS 3+; MACROCYTOSIS 0; PLATELET ESTIMATE NORMAL
--- NOTE | 2020-03-05 10:47 | PN ---
Progress Note (short form) - Note Progress Note: Chief Complaint: comfortable, alert Denies CP/SOB/palps TELE: Sinus rhythm History of Present Illness: anemia Sinus carline Current Medications Generic Name Dose Route Start Last Admin Trade Name Indira PRN Reason Stop Dose Admin Amlodipine Besylate 5 mg 03/05/20 10:00 03/05/20 09:00 Norvasc - PO 5 mg DAILY VICTORINO Administration Atorvastatin Calcium 40 mg 02/27/20 22:00 03/04/20 22:23 Lipitor - PO 40 mg HS VICTORINO Administration Pantoprazole Sodium 20 mg 03/04/20 10:00 03/05/20 09:00 Protonix - PO 20 mg DAILY VICTORINO Administration Vital Signs Period Temp Pulse Resp BP Sys/Vega Pulse Ox Last 24 Hr 97.0 F-99 F 55-71 14-18 120-142/50-76 95-100 Constitutional: Yes: No Distress, Calm Eyes: Yes: Conjunctiva Clear, EOM Intact HENT: Yes: Atraumatic, Normocephalic Neck: Yes: Supple Cardiovascular: Yes: Regular Rate and Rhythm Respiratory: Yes: CTA Bilaterally Gastrointestinal: Yes: Soft (nt) Edema: No Neurological: Yes: Alert, Oriented Labs: CBC, BMP CBC, BMP 03/05/20 05:40 03/05/20 05:40 - ....Imaging EKG: Image Reviewed echo 01/2020: nl lv/rv, mild ar, mild as, nl rvsp a/p: 85 f hx afib on ac, cva, htn, hld, here with syncope. syncope: -sinus carline noted during overnight hours = likely physiologic sec to hi vagal tone. no severe bradycardia or conduction block noted. -episode was most likely due to severe anemia -echo and ecg unremarkable (manual qtc is wnl on ecg) -tele has been benign anemia, preop CV eval: -s/p prbcs -GI consulted and following s/p unremarkable egd/foc htn: -HCTZ and amlodipine held due to soft bp's, now BP elevated - resumed amlodipine hld: -cont statin pafib, prolonged QT: -in sr here -amio held for QTc > 500 (no other common offending meds on drug list) -aggressive K/Mag repletion -hold home eliquis in setting of severe anemia here
[2020-03-05] MEDS: KCL 10 MEQ IVPB 10 MEQ/100 ML INFUS.BAG IVPB SCH ×2 (11:13→12:17)
[2020-03-05] MEDS: POTASSIUM CHLORIDE TABS 10 MEQ TABLET.ER (FP) PO SCH ×2 (11:14→14:04)
--- NOTE | 2020-03-05 14:21 | PN ---
Progress Note (short form) - Note Progress Note: No overt bleeding has been reported. EGD without evidence of GI bleed source. Colonoscopy with clean based anastamotic ulcers at the rectal, otherwise unrevealing for bleeding source. ? if simply anastamotic ulcerations, stercoral ulcerations from fecal retentions Advise: There has never been overt bleeding and I suspect that her microcytic anemia was cumulative over time. if she is at high risk for CVA off A/C, would advise resuming anticoagulation and monitoring for signs of overt bleeding. if continued dwindling H/H while on A/C with occult or overt bleeding, then continuation of A/C will need to be revaluated and she will need capsule endoscopy as well for completion of work-up. This could be undertaken at her primary institution [facility]. Concerns and plan should be communicated to her PMD so that proper outpatient monitoring and follow-up can be achieved. This would also help in arranging IV iron therapy (I think that PO supplementation would likely only worsen her fecal retention and likelihood of continued fecal impactions. Will need aggressive bowel regimen moving forward to prevent further fecal impactions and help with healing of the ulcers noted on yesterday's colonoscopy. Problem List - Problems (1) Anemia Code(s): D64.9 - ANEMIA, UNSPECIFIED Qualifiers: Anemia type: unspecified type Qualified Code(s): D64.9 - Anemia, unspecified (2) Fecal impaction of colon Code(s): K56.41 - FECAL IMPACTION
--- NOTE | 2020-03-05 16:27 | PN ---
Teaching Attending Note Name of Resident: Akhil Aldana ATTENDING PHYSICIAN STATEMENT I saw and evaluated the patient. I reviewed the resident's note and discussed the case with the resident. I agree with the resident's findings and plan as documented. SUBJECTIVE: Seen and examined at bedside. No complaints. Hemoglobin stable. Patient is medically cleared for discharge OBJECTIVE: Last Vital Signs Temp Pulse Resp BP Pulse Ox 97.0 F L 56 L 18 131/51 L 98 03/04/20 14:34 03/04/20 14:34 03/04/20 14:34 03/04/20 14:34 03/04/20 14:34 PE: per resident note Labs/Imaging: reviewed ASSESSMENT AND PLAN: 85 year old female wit history of CVA with residual dysphasia (2019), Atrial Fibrillation (on Eliquis), 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 Patient received 4 units PRBCs and was found to have iron deficiency anemia. Colonoscopy was delayed because patient was severely impacted and had to be disimpacted prior to procedure. Colonoscopy did not show active bleeding source but did show anastomotic ulcers and stercoral ulcerations likely due to fecal retention. The patient was given iron. She will be discharged on her home medications including her blood thinner due to her hx of afib and stroke. Because of her Hirschsprung's disease oral iron is likely to be problematic so she will need outpatient IV iron treatments. She will also be given an aggressive bowel regimen to help prevent future impaction. Patient is medically cleared for discharge
--- NOTE | 2020-03-05 19:17 | DS ---
Physical Exam: SUBJECTIVE: No overnight events. Patient seen and examined. No complaints. Endorses feeling better OBJECTIVE: Vital Signs Period Temp Pulse Resp BP Sys/Vega Pulse Ox Last 24 Hr 98 F-99 F 64-73 14-18 123-141/58-79 95 PHYSICAL EXAM GGENERAL:AAOX2, in NAD. aphasic HEENT: NT/NC; No ptosis, MMM LUNGS: Breath sounds equal, clear to auscultation bilaterally, no wheezes, no crackles, no accessory muscle use. HEART: Regular rate and rhythm, S1, S2. Systolic mumur at L lower sternal border and mitral area ABDOMEN: Soft, nontender, nondistended, normoactive bowel sounds, EXTREMITIES: 2+ pulses, warm, well-perfused, no edema. NEUROLOGICAL: Normal speech, gait not observed. PSYCH: Normal mood, normal affect. SKIN: Warm, dry, normal turgor, no rashes or lesions noted LABS Laboratory Results - last 24 hr 03/05/20 03/05/20 05:40 05:40 WBC 6.6 RBC 4.08 Hgb 9.2 L Hct 29.1 L MCV 71.3 L MCH 22.6 L MCHC 31.7 L RDW 29.8 H Plt Count 256 MPV 8.5 Absolute Neuts (auto) 4.8 Neutrophils % 72.1 Lymphocytes % 18.8 Monocytes % 7.8 Eosinophils % 1.0 Basophils % 0.3 Nucleated RBC % 0 Hypochromia 1+ Platelet Estimate Normal Polychromasia 1+ Poikilocytosis 3+ Anisocytosis 3+ Microcytosis 3+ Macrocytosis 0 Acanthocytes (Spur) 2+ Schistocytes 2+ Sodium 141 Potassium 3.1 L Chloride 106 Carbon Dioxide 30 Anion Gap 6 L BUN 9.6 Creatinine 0.7 Est GFR (CKD-EPI)AfAm 91.57 Est GFR (CKD-EPI)NonAf 79.00 Random Glucose 82 Calcium 8.3 L Phosphorus 3.3 Magnesium 1.9 Total Bilirubin 0.4 AST 23 ALT 19 Alkaline Phosphatase 93 Total Protein 5.5 L Albumin 2.0 L HOSPITAL COURSE: 85 YO F PMH HTN, CVA with residual aphasia and Afib (on eliquis) presented s/p a syncopal episode, found to have microcytic anemia. CT head/CTAP showed no acute pathology. ECHO, EKG unremarkable. Was given PRBC for low Hgb/Hct. Found to have prolonged QTC and bradycardia. Avoided meds that caused QT prolonging or bradycardia. On admission, Hgb/Hct 5/18.5. -LOW: MCV, iron, iron saturation/// HIGH: TIBC 466; Unsaturated IBC: 457, RDW// NORMAL: Vit B12 (604), Folate (9). - s/p 4 units prbc and also given venofer & protonix 40 mg daily. Underwent a colonoscopy: Rectum: anastomosis visualized with two ulceration 5-7 mm in size without stigmata of recent bleed. Some erythema noted. //Sigmoid, descending colon: normal// transverse colon: one small sessile polyp measuring 6 mm was visualized removed//ceccum normal. Anastomosis ulcerations/erythema as etiology of her GI bleed. No active bleeding noted on exam. Internal hemorrhoids grade 1. Pt will f/u pathology results outpt and advised to avoid NSAID and get Surveillance colonoscopy based on pathology results. CTAP showed Fecal retention with rectal impaction which was managed with [id number] mg PO BID, Miralax 17 gm PO TID, senna tab PO HS and manual disimpaction. Pt is stable for discharge. Date of Admission:02/27/20 CTH: encephalomalacia in L frontal lobe, extending level of slyvian fissure up to centrum semiovale. B/l maxillary antra retention cysts vs polyps, largest measuring 12 mm on R CTAP: bibasilar consolidation/atelectasis. Fecal retention with rectal impaction. Thickening of rectal wall -ECHO: LV/RV normal. Trace tricuspid/pulmonic regurg. Mild aortic regurg. Mild aortic stenosis -Carotid duplex: plaques; but without evidence of hemodynamically significant stenosis Date of Discharge: 03/05/20 Minutes to complete discharge: 43 Discharge Summary Problems reviewed: Yes Reason For Visit: ANEMIA,SYNCOPE AND COLLAPSE Current Active Problems Anemia (Acute) Fecal impaction of colon (Acute) Syncope and collapse (Acute) Condition: Stable - Instructions Diet, Activity, Other Instructions: You came in after losing consciousness and falling. Imaging of your brain did not show acute pathology, but showed your old stroke. Imaging of the blood vessels in your neck did not show significant narrowing. EKG of your heart showed a normal rhythm with a slow heart rate and prolongation of the QTC. Please consult a physician before taking medications that could affect your heart activity, such as antihistamines, antibiotics such as azithromycin/levofloxacin, herbs like licorice extract, etc. Please STOP taking your amiodarone. Labwork showed that your potassium was low. You were given potassium. Labwork showed that you were anemic, so you were given blood transfusions and IV iron. To evaluate a source of this anemia, you underwent a colonoscopy which showed hemoorrhoids and ulcerations, but no active bleeding. Please follow-up with your primary care physician 2 weeks for repeat labwork for Complete Blood Count to follow-up your anemia and to discuss getting intravenous iron (venofer). You were found to have a large amount of hardened stool in your colon. You had your rectum disimpacted to remove this stool and given stool softener and laxatives. You will need to take multiple laxatives (see below) to prevent further constipation and bleeding. Your symptoms improved. You are stable for discharge. MEDICATIONS Please STOP taking Amiodarone. Please START taking polyethylene glycol (Miralax) 17 grams twice a day. Please START taking docusate 100 mg twice a day. Please START taking senna 2 tabs before bed time. Please START taking pantoprazole (Protonix) 20 mg once a day. Please CONTINUE taking your other home medications as prescribed. FOLLOW-UP Please follow-up with your primary care physician, Dr. Seaman, in 2 weeks for repeat labwork for Complete Blood Cell Count to follow-up on your anemia. Also, get labwork for electrolytes to follow-up on your potassium levels. Also, discuss with your physician about getting intravenous iron (Venofer). Please follow-up with your asset protection professional, Dr. Zavala, regarding the pathology results of your colonoscopy. Please AVOID Nonsteroidal Anti-Inflammatory Drugs (NSAIDs) such as aspirin. Please continue with a low sodium/fat/cholesterol diet. ADDITIONAL INFORMATION Please call 911 or come directly to the emergency department if you experience chest pain, shortness of breath, unusual bleeding, unusual headache, vision change, difficulty speaking, numbness, tingling, loss of alertness/awareness, loss of function, or any alarming symptoms Referrals: Mare Zavala DO [Staff Physician] - Eran Seaman MD [Primary Care Provider] - (s/p syncopal episode. found to be anemic. needed blood transfusions. underwent colonoscopy for evaluation of anemia. Please get repeat CBC to follow- up on anemia. Also, please repeat BMP to follow-up on potassium levels. Also, discuss with patient about getting intravenous iron (Venofer). Iron supplements PO will make patient constipated. Patient was disimpacted twice and once during her 1st colonoscopy. Reported History of Hirschprung's disease ) Disposition: HOME - Home Medications Comprehensive Discharge Medication List: Ambulatory Orders Amlodipine Besylate [Norvasc -] 5 mg PO DAILY 02/27/20 Apixaban [Eliquis -] 2.5 mg PO BID 02/27/20 Atorvastatin Ca [Lipitor] 40 mg PO HS 02/27/20 Hydrochlorothiazide [Hctz -] 25 mg PO DAILY 02/27/20 Docusate Sodium [Docusate 100 mg] 100 mg PO BID 30 Days #60 capsule 03/05/20 Pantoprazole Sodium [Protonix -] 20 mg PO DAILY 30 Days #30 tablet.ec 03/05/20 Polyethylene Glycol 3350 [Miralax 119 gm Btl -] 17 gm PO BID #1 bottle 03/05/20 Sennosides [Senna -] 2 tab PO HS 30 Days #60 tablet 03/05/20 This patient is new to me today: No Emergency Visit: Yes ED Registration Date: 02/27/20 Care time: The patient presented to the Emergency Department on the above date and was hospitalized for further evaluation of their emergent condition. Critical Care patient: No - Discharge Referral Referred to [facility] No ATTENDING PHYSICIAN STATEMENT I saw and evaluated the patient. I reviewed the resident's note and discussed the case with the resident. I agree with the resident's findings and plan as documented. SUBJECTIVE: OBJECTIVE: ASSESSMENT AND PLAN:
[2020-03-05] MEDS ORDERED: SENNOSIDES 8.8 MG/5 ML BULK BOTTLE PO SCH (22:00)
[2020-03-05] MEDS: ATORVASTATIN CA 40 MG TABLET (FP) PO SCH (23:35)
[2020-03-05] MEDS: POLYETHYLENE GLYCOL 3350 119 GM BTL PO SCH (23:35)
[2020-03-06 02:03] VITALS: TEMP 98.6
--- NOTE | 2020-03-06 06:14 | PN ---
Progress Note, Physician Chief Complaint: No new complaints No CP/SOB - Current Medication List Current Medications: Active Medications Amlodipine Besylate (Norvasc -) 5 mg PO DAILY [facility] Last Admin: 03/05/20 09:00 Dose: 5 mg Documented by: Atorvastatin Calcium (Lipitor -) 40 mg PO [facility] Last Admin: 03/05/20 23:35 Dose: 40 mg Documented by: Pantoprazole Sodium (Protonix -) 20 mg PO DAILY [facility] Last Admin: 03/05/20 09:00 Dose: 20 mg Documented by: Polyethylene Glycol (Miralax (For Daily Use) -) 17 gm PO BID [facility] Last Admin: 03/05/20 23:35 Dose: 17 gm Documented by: Senna (Senna Oral Solution -) 8.8 mg PO [facility] Last Admin: 03/05/20 23:35 Dose: 8.8 mg Documented by: - Objective Vital Signs: Vital Signs Temperature 98.6 F 03/06/20 02:00 Pulse Rate 64 03/06/20 02:00 Respiratory Rate 18 03/06/20 02:00 Blood Pressure 129/65 03/06/20 02:00 O2 Sat by Pulse Oximetry (%) 95 03/04/20 21:00 Constitutional: Yes: No Distress Cardiovascular: Yes: Regular Rate and Rhythm Respiratory: Yes: CTA Bilaterally Gastrointestinal: Yes: Soft (nt) Edema: No Neurological: Yes: Alert, Oriented Labs: CBC, BMP 03/05/20 05:40 03/05/20 05:40 INR, PTT INR 1.08 (0.83-1.09) 03/02/20 05:35 Laboratory Tests 03/05/20 03/05/20 05:40 05:40 WBC 6.6 Hgb 9.2 L Plt Count 256 Sodium 141 Potassium 3.1 L Creatinine 0.7 Assessment/Plan cho 01/2020: nl lv/rv, mild ar, mild as, nl rvsp a/p: 85 f hx afib on ac, cva, htn, hld, here with syncope. syncope: -sinus carline noted during overnight hours = likely physiologic sec to hi vagal tone. no severe bradycardia or conduction block noted. -episode was most likely due to severe anemia -echo unremarkable -tele has been benign anemia, preop CV eval: -s/p prbcs -GI consulted and following s/p unremarkable egd/foc htn: -HCTZ and amlodipine held due to soft bp's, now BP elevated - resumed amlodipine hld: -cont statin pafib, prolonged QT: -in sr here -amio held for QTc > 500 (no other common offending meds on drug list) -aggressive K/Mag repletion -hold home eliquis in setting of severe anemia here.
[2020-03-06 06:34] VITALS: PULSE 69
[2020-03-06] MEDS: POLYETHYLENE GLYCOL 3350 119 GM BTL PO SCH (09:01)
[2020-03-06] MEDS: PANTOPRAZOLE 20 MG TABLET PO SCH (09:02)
[2020-03-06] MEDS: amLODIPine BESYLATE 5 MG TABLET (FP) PO SCH (09:02)
[2020-03-06 10:14] VITALS: BP 140/83
--- NOTE | 2020-03-06 13:20 | PN ---
Teaching Attending Note Name of Resident: Akhil Aldana ATTENDING PHYSICIAN STATEMENT I saw and evaluated the patient. I reviewed the resident's note and discussed the case with the resident. I agree with the resident's findings and plan as documented. SUBJECTIVE: Seen and examined at bedside. Unable to obtain transport last night so discharge held. No complaints. Hemoglobin stable. 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 Patient received 4 units PRBCs and was found to have iron deficiency anemia. Colonoscopy was delayed because patient was severely impacted and had to be disimpacted prior to procedure. Colonoscopy did not show active bleeding source but did show anastomotic ulcers and stercoral ulcerations likely due to fecal retention. The patient was given iron. She will be discharged on her home medications including her blood thinner due to her hx of afib and stroke. Because of her Hirschsprung's disease oral iron is likely to be problematic so she will need outpatient IV iron treatments. She will also be given an aggressive bowel regimen to help prevent future impaction. Patient is medically cleared for discharge
--- NOTE | 2020-03-06 17:13 | PATH ---
Surgical Pathology Report Patient Name: JOSE ALEXANDER [facility]. Rec. #: [id number] /Age/Gender: 1935 (Age: 85) / F Account: [id number] Location: 4 W TELEMETRY U Taken: 03/04/2020 Received: 03/05/2020 Reported: 03/06/2020 Physicians: Kaity Lei M.D. Specimen(s) Received A: POLYP TRANSVERSE COLON B: ULCER ANASTAMOSIS Clinical History Anemia, fecal impaction Postoperative diagnosis: Colon polyp, ulcer, hemorrhoids Final Diagnosis A. TRANSVERSE COLON, POLYP, BIOPSY: TUBULAR ADENOMA. B. COLON, ULCER, ANASTOMOSIS, BIOPSY: COLONIC MUCOSA WITH MILD ACUTE AND CHRONIC INFLAMMATION WITHIN LAMINA PROPRIA AND MILD SUPERFICIAL HYPERPLASTIC FEATURES COMPATIBLE WITH ANASTOMOTIC SITE. Electronically Signed Mare Luna M.D. Gross Description A. Received in formalin, labeled "biopsy polyp transverse colon" is a ruiz, irregular portion of soft tissue measuring 0.3 cm. in greatest dimension. The specimen is submitted in toto in one cassette. B. Received in formalin, labeled "biopsy ulcer of anastomosis" is a ruiz, irregular portion of soft tissue measuring 0.3 cm. in greatest dimension. The specimen is submitted in toto in one cassette. 03/05/2020 saudi03/05/2020
== END 2020-03-06 16:10 | disposition home or self-care (01) | DRG 378 ==
LOC: JER 21:48 → JERBED 02-27 01:09 → J4S 02-27 16:39 → J4W 03-03 13:25
PROVIDERS: ADMIT Internal Medicine; ATTEND Internal Medicine
PROC: 0DBL8ZX Excision of Transverse Colon, Via Natural or Artificial Opening Endoscopic, Diagnostic (ICD-10-PCS; 2020-03-04)
PROC: 0DBP8ZX Excision of Rectum, Via Natural or Artificial Opening Endoscopic, Diagnostic (ICD-10-PCS; 2020-03-04)
PROC: 0DJ08ZZ Inspection of Upper Intestinal Tract, Via Natural or Artificial Opening Endoscopic (ICD-10-PCS; 2020-03-04)
PROC: 30233N1 Transfusion of Nonautologous Red Blood Cells into Peripheral Vein, Percutaneous Approach (ICD-10-PCS; 2020-03-04)
PROC: 0DJD8ZZ Inspection of Lower Intestinal Tract, Via Natural or Artificial Opening Endoscopic (ICD-10-PCS; principal; 2020-03-04 13:31)
DX: K62.5 Hemorrhage of anus and rectum (principal); K62.6 Ulcer of anus and rectum; Q43.1 Hirschsprung's disease; J98.11 Atelectasis; E46 Unspecified protein-calorie malnutrition; D50.9 Iron deficiency anemia, unspecified; I69.320 Aphasia following cerebral infarction; R55 Syncope and collapse; I11.9 Hypertensive heart disease without heart failure; I45.81 Long QT syndrome; E11.9 Type 2 diabetes mellitus without complications; K64.8 Other hemorrhoids; G93.89 Other specified disorders of brain; K63.5 Polyp of colon; K56.41 Fecal impaction; I10 Essential (primary) hypertension; S42.001A Fracture of unspecified part of right clavicle, initial encounter for closed fracture; W01.0XXA Fall on same level from slipping, tripping and stumbling without subsequent striking against object, initial encounter; E86.1 Hypovolemia; R00.1 Bradycardia, unspecified; I48.0 Paroxysmal atrial fibrillation; E87.6 Hypokalemia; Z68.21 Body mass index [BMI] 21.0-21.9, adult
CPT/HCPCS: 36415; 36430; 36511; 70450-TC; 71045-TC-FY; 74176-TC; 80048; 80053; 81003; 82272; 82550; 82607; 82746; 83540; 83550; 83735; 84100; 84443; 84484; 85025; 85027; 85044; 85610; 85730; 86850; 86900; 86901; 86922; 87086; 88305-TC; 93005; 93010; 93306-TC; 93880-TC; 97116-GP; 97161-GP; 99285-25; J1756; P9038; P9058; U0003